=== PATIENT | male | born 1940 | race Caucasian/White ===

== ENCOUNTER 2016-10-08 06:21 | Day surgery (SDC) | payer MEDICARE, OTHER ==
[~2016-10-08] VITALS: Ht 188 cm; Wt 107.0 kg
[~2016-10-08 06:21] MED LIST: ASPIRIN325 MG PO; BAYER CHEWABLE81 MG PO; COUMADIN5 MG PO; COUMADIN7.5 MG PO; DILAUDID2 MG PO; DURAGESIC1 PATCH .7 TRANSDERM; HYZAAR 50-12.51 TAB PO; LOVENOX INJ100 MG/ML SQ; MIRALAX17 GM PO; NORCO 10/325 TA1 TA1 PO; NORVASC2.5 MG PO; PHENERGAN25 M1 PO; PLAVIX75 MG PO; PRAVACHOL20 MG PO; RESTORIL15 MG PO; TENORMIN50 MG PO; TRIBENZOR 40-51 EAC1 PO; UROCIT-K10 MEQ PO; ZESTRIL40 MG PO
[2016-10-08 07:24] LABS: BASOPHILS 0.1 % (0.0-2.0); EOSINOPHILS 1.2 % (0-7); HEMATOCRIT 41.9 % (42.0-54.0); IMMATURE GRANULOCYTES 0.8 % (0-5); LYMPHOCYTES 10.2 % (15-50); MCH 28.5 pg (26.0-34.0); MCHC 33.4 g/dL (31.0-37.0); MCV 85.2 fL (80.0-100.0); MEAN PLATELET VOLUME 9.6 fL (7.4-10.4); MONOCYTES 14.3 % (2-11); NEUTROPHILS 73.4 % (40-80); RBC 4.92 10x6/uL (4.20-6.10); RDW 15.9 % (11.5-14.5); WBC 8.3 10x3/uL (4.8-10.8)
[2016-10-08 07:26] LABS: PLATELET COUNT 124 10x3/uL (130-400)
[2016-10-08 07:39] LABS: ANION GAP 11.5 mmol/L (8-16); APTT 28.2 SECONDS (22.8-39.4); CALCIUM 9.3 mg/dL (8.5-10.1); CARBON DIOXIDE 29.2 mmol/L (21.0-32.0); CREATININE - SERUM 1.3 mg/dL (0.6-1.3); INR 1.08 (0.85-1.17); POTASSIUM - SERUM 3.7 mmol/L (3.5-5.1); PROTIME 13.9 SECONDS (11.6-15.0)
[2016-10-08 08:09] VITALS: BP 114/74; Ht 188 cm; Wt 107.0 kg
[2016-10-08] MEDS ORDERED: HYDROCODONE-APA1 TAB PO (09:55)
--- NOTE | 2016-10-08 11:19 | NUR ---
1110 SERVED FULL LIQUID DIET. Thong VAUGHN R.N.
--- NOTE | 2016-10-08 13:19 | NUR ---
1130 DRESSED. AWAKE & ALERT. GIVEN PACKET OF D/C INFORMATION INCLUDING: RX FOR NORCO 10/325MG, MED REC., DISCHARGE INSTRUCTIONS FOR LYMPH NODE BIOPSY, OP D/C INSTRUCTIONS, & RTC APPT. PT VOICED UNDERSTANDING. TO PRIVATE CAR PER WHEELCHAIR BY VOLUNTEER. HOME WITH , CAS COON. Thong VAUGHN R.N.
--- NOTE | 2016-10-25 13:21 | OP ---
PATIENT NAME: PATY COON MEDICAL RECORD: [id number] :40 LOCATION:D.OPS ADMISSION DATE: SURGEON: YAN MARTÍNEZ MD DATE OF OPERATION: 10/08/2016 PREOPERATIVE DIAGNOSES: 1. Right axillary lymphadenopathy. 2. History of lymphoma. 3. Hypertension. 4. Coronary artery disease. POSTOPERATIVE DIAGNOSES: 1. Right axillary lymphadenopathy. 2. History of lymphoma. 3. Hypertension. 4. Coronary artery disease. PROCEDURE: Right axillary excisional lymph node biopsy. SURGEON: Yan Martínez MD REPORT OF PROCEDURE: The patient's right axilla was prepped and draped in sterile fashion. A skin incision was made on the inferior and anterior aspect of the patient's right axilla. Electrocautery was used to dissect through the subcutaneous tissues into the axillary space. There was a very large axillary lymph node collection present. This was firm and I was able to get my finger around it. We were eventually able to eviscerate this through the wound and remove any attachments. The total size of the lymph node was approximately 5 cm. Once the lymph node was taken out, it was sent off to pathology, fresh for permanent specimen and lymphoma protocol. The wound space was then inspected and any sign of bleeding was treated with electrocautery. We then irrigated out the wound thoroughly with normal saline. The subcutaneous tissues were reapproximated with interrupted 3-0 Vicryl, then infused with 10 mL of 0.25% Marcaine with epinephrine. The skin incision was then closed with running subcutaneous 5-0 Monocryl and dressed appropriately. COMPLICATIONS: None. CONDITION: Stable. ANESTHESIA: General endotracheal and local. BLOOD LOSS: Minimal. TRANSINT:[id number] Voice Confirmation ID: [id number] DOCUMENT ID: [id number] YAN MARTÍNEZ MD at 1321 CC: LEN BYNUM MD and MURALI GAMINO MD [id number] DICTATION DATE: 10/08/16 1000 MANAGER COMMUNITY DEVELOPMENT: 10/08/16 1117 [facility] 10/08/16 [id number] [place] [address]
== END 2016-10-08 11:30 | disposition home or self-care (01) ==
LOC: D.OPS 06:21 → D.PAN 08:35 → D.OPS 10:15 → D.PAN 10:15 → D.OPS 11:30
PROVIDERS: Anesthesiology; Surgery
DX: C85.90 Non-Hodgkin lymphoma, unspecified, unspecified site (principal); I25.10 Atherosclerotic heart disease of native coronary artery without angina pectoris; Z95.0 Presence of cardiac pacemaker; Z95.1 Presence of aortocoronary bypass graft; I10 Essential (primary) hypertension; G47.30 Sleep apnea, unspecified

== ENCOUNTER → 2016-10-30 13:15 | Outpatient (CLI) | payer MEDICARE, OTHER ==
[2016-10-08 08:09] VITALS: BMI 30.3
[~2016-10-30 13:15] MED LIST changes: +HYDROCODONE-APA1 TAB PO
== END | disposition home or self-care (01) ==
LOC: D.CT 13:15
DX: C83.38 Diffuse large B-cell lymphoma, lymph nodes of multiple sites (principal)

== ENCOUNTER → 2016-10-31 14:08 | Outpatient (CLI) | payer MEDICARE, OTHER ==
[2016-10-08 08:09] VITALS: BMI 30.3
== END | disposition home or self-care (01) ==
LOC: D.CT 14:08
DX: R10.31 Right lower quadrant pain (principal)

== ENCOUNTER 2017-02-14 07:30 | Outpatient (CLI) | payer MEDICARE, OTHER ==
[~2017-02-14] VITALS: Ht 188 cm; Wt 102.3 kg
--- NOTE | ~2017-02-14 | HEMODYNAMI ---
PATIENT:PATY COON MEDICAL RECORD: [id number] : 40 LOCATION:DRITU ADMISSION DATE: 02/14/17 Generatedon:02/14/20179:46 Patient name: PATY COON Patient #: [id number] SSN: : 1940 Date of study: 02/14/2017 Page: Of Hemodynamic Procedure Report Patient Data Patient Demographics Procedure consent was obtained First Name: PATY Gender: Male Last Name: SHAGGY : 1940 Middle Initial: R Age: 77 year(s) Patient #: [id number] Race: Additional ID: [id number] Contact details Address: [address] [place] [address] State: [place] City: [place] Zip code: [address] Past Medical History Allergies Allergen Reaction Date Comments Reported Other allergy 02/14/2017 [facility] Admission Admission Data Admission Date: 02/14/2017 Admission Time: 7:30 Lab Results Lab Result Date: 02/14/2017 Lab Result Time: 0:00 Biochemistry Name Units Result Min Max Creatinine mg/dl 1.2 --(---*)-- 0.6 1.3 CBC Name Units Result Min Max Hemoglobin g/dl 10.3 *-(----)-- 13.5 17.5 Procedure Procedure Types Cath Procedure Diagnostic Procedure LHC LHC w/Coronaries w/Grafts Miscellaneous Procedures Moderate Sedation up to 15 minutes Procedure Description Procedure Date Procedure Date: 02/14/2017 Procedure Start Time: 9:36 Procedure End Time: 9:45 Procedure Staff Name Function Kendrick Singer MD Performing Physician Rajan Kowalski RT Scrub Jose Henao RN Nurse Clover Oconnell RT Monitor Procedure Data Cath Procedure Fluoroscopy Diagnostic fluoroscopy Total fluoroscopy Time: 1.8 time: 1.8 min min Diagnostic fluoroscopy Total fluoroscopy dose: 323 dose: 323 mGy mGy Contrast Material Contrast Material Type Amount (ml) Isovue 300 55 Entry Location Entry Primary Successful Side Size Upsize Upsize Entry Closure Succes sful Closure Location (Fr) 1 (Fr) 2 (Fr) Remarks Device Remarks Femoral Right 5 Fr Exoseal artery Estimated blood loss: 5 ml Diagnostic catheters Device Type Used For End Catheter Placement Cordis 5Fr Pigtail LV Angiography Catheter (MP) Cordis 5Fr JL 4.0 Left Coronary Catheter (MP) Angiography Cordis 5Fr 3DRC Catheter Internal mammary (MP) arteriography Cordis 5Fr 3DRC Catheter Right Coronary (MP) Angiography Procedure Complications No complications Procedure Medications Medication Administration Route Dosage Oxygen NC 2 l/min Heparin Flush Bag added to field 2 bags (1000units/500ml NS) 0.9% NaCl I.V. 100 ml/hr Fentanyl I.V. 50 mcg Versed I.V. 1 mg Fentanyl I.V. 50 mcg Versed I.V. 1 mg Hemodynamics Rest Heart Rate: 82 (bpm) Pressure Samples Time Site Value (mmHg) Purpose Heart Use Rate(bpm) 9:38 LV 120/19,37 Snapshot 76 Snapshots Pre Cath Intra NCS Post Cath Vital Signs Time Heart Resp SPO2 NIBP (mmHg) Rhythm Pain Sedation Rate (ipm) (%) Status Level (bpm) 9:10:42 77 16 98 125/80(104) NSR 0 (11) 10(A) , No pain 9:14:54 82 17 98 123/85(108) NSR 0 (11) 10(A) , No pain 9:19:06 83 16 98 125/81(101) NSR 0 (11) 10(A) , No pain 9:23:20 83 18 99 125/82(102) NSR 0 (11) 10(A) , No pain 9:27:29 78 17 100 121/91(111) NSR 0 (11) 10(A) , No pain 9:31:39 97 16 100 131/85(109) NSR 0 (11) 10(A) , No pain 9:35:53 82 16 100 133/85(110) NSR 0 (11) 9(A) , No pain 9:40:05 97 18 96 129/96(109) NSR 0 (11) 9(A) , No pain 9:44:13 98 17 98 134/93(113) NSR 0 (11) 9(A) , No pain Medications Time Medication Route Dose Verified Delivered Reason Notes Effect iveness by by 9:17:15 Oxygen NC 2 Jose Jose Per l/min Juliano Henao RN physician RN 9:20:18 Heparin Flush added 2 Jose Jose used for Bag to bags Juliano Henao RN procedure (1000units/500ml field RN NS) 9:20:27 0.9% NaCl I.V. 100 Jose Jose Per ml/hr Juliano Henao RN physician RN 9:34:45 Fentanyl I.V. 50 Jose Jose for [facility] [place], [place] Juliano Henao RN sedation RN 9:34:52 Versed I.V. 1 mg Jose Jose for Juliano Henao RN sedation RN 9:37:23 Fentanyl I.V. 50 Jose Jose for [facility] [place] [place] Juliano Henao RN sedation RN 9:37:28 Versed I.V. 1 mg Jose Jose for Juliano Henao RN sedation mechanical design drafter Log Time Note 8:45:24 Jose Henao RN sent for patient. Start room use. 8:52:25 Time tracking: Regular hours 8:52:29 Plan of Care:Hemodynamics will remain stable., Cardiac rhythm will remain stable., Comfort level will be maintained., Respiratory function will remain adequate., Patient/ family verbilizes understanding of procedure., Procedure tolerated without complication., Recovers from procedure without complications.. 8:59:55 Patient received from Pre/Post Procedure Room to [facility] 2 Alert and oriented. Tansferred to table in Supine position. 8:59:56 Warm blankets applied, and milly hugger turned on for patient comfort. 8:59:56 Correct patient and procedure confirmed by team. 8:59:58 Signed procedure consent form obtained from patient. 8:59:58 ECG and BP/O2 sat monitors applied to patient. 9:09:38 Vital chart was started 9:09:48 Rhythm: paced 9:09:50 Full Disclosure recording started 9:10:02 H&P Date Dictated: 02/10/2017 Within 30 days and on chart., H&P Addendum completed by physician on day of procedure. (MUST COMPLETE FOR ALL OUTPATIENTS). 9:10:03 Pre-procedure instructions explained to patient. 9:10:03 Pre-op teaching completed and patient verbalized understanding. 9:10:04 Family in waiting room. 9:10:05 Patient NPO since Midnight. 9:10:28 Patient allergic to Other allergylevaquin 9:10:31 Is the patient allergic to Iodine/contrast media? No. 9:10:33 Is patient on blood thinner?Yes 9:10:35 ACC The patient was administered the following blood thiners within the last 24 hours: ACCPlavix 9:10:37 Patient diabetic? No. 9:10:41 Previous problem with sedation/anesthesia? No ? 9:10:41 Snore? Yes 9:10:44 Sleep apnea? Yes 9:10:45 Deviated septum? No 9:10:47 Opens mouth fully? Yes 9:10:48 Sticks out tongue? Yes 9:10:50 Airway obstruction? No ? 9:10:52 Dentures? No ? 9:10:55 Pre procedure: right dorsailis pedis pulse 2+ Normal; easily identifiable; not easily obliterated 9:10:57 Patient pain scale 0/10 ?. 9:11:01 IV patent on arrival in left hand with 0.9% NaCl at [facility]. 9:11:17 Lab results completed and on chart. 9:11:20 Right groin area was prepped with chlora-prep and draped in sterile fashion 9:11:20 Alarms reviewed by R. N. 9:11:21 Sharps counted by scrub and verified by R.N. 9:15:36 Lab Result : Creatinine 1.2 mg/dl 9:15:36 Lab Result : Hemoglobin 10.3 g/dl 9:15:42 Use device set Femoral Dx 9:15:43 Acist Syringe opened to sterile field. 9:15:43 Bag Decanter opened to sterile field. 9:15:43 Medline Cath Pack opened to sterile field. 9:15:44 Terumo 5Fr [place] Sheath opened to sterile field. 9:15:44 St Narciso 260cm J .035 wire opened to sterile field. 9:15:45 Acist Hand Control opened to sterile field. 9:15:46 Acist Manifold opened to sterile field. 9:15:46 Diagnostic Infinity 5Fr Multipack catheter opened to sterile field. 9:15:47 Tegaderm 4 x 4 opened to sterile field. 9:17:15 Oxygen 2 l/min NC was administered by Jose Henao RN; Per physician; 9:20:18 Heparin Flush Bag (1000units/500ml NS) 2 bags added to field was administered by Jose Henao RN; used for procedure; 9:20:27 0.9% NaCl 100 ml/hr I.V. was administered by Jose Henao RN; Per physician; ::57 Baseline sample Acquired. 9:22:07 Zero performed for pressure channel P1 9:31:57 Final Timeout: patient, procedure, and site verified with staff and physician. All members of the team are in agreement. 9:32:00 Right groin site verified by team. 9:32:03 Physical assessment completed. ASA score P 2 - A patient with mild systemic disease as per Kendrick Singer MD. 9:32:40 Sedation plan: IV Moderate Sedation Versed, Fentanyl 9:34:45 Fentanyl 50 mcg I.V. was administered by Jose Henao RN; for sedation; 9:34:52 Versed 1 mg I.V. was administered by Jose Henao RN; for sedation; 9:36:43 Procedure started. 9:36:45 Local anesthetic to right femoral artery with Lidocaine 2% by Kendrick Singer MD.INITIAL ACCESS ONLY 9:37:03 A 5 Fr sheath was inserted into the Right Femoral artery 9:37:16 A Cordis 5Fr Pigtail Catheter (MP) was advanced over the wire and used for LV Angiography. 9:37:23 Fentanyl 50 mcg I.V. was administered by Jose Henao RN; for sedation; 9:37:28 Versed 1 mg I.V. was administered by oJse Henao RN; for sedation; 9:38:14 LV gram done using BORREGO 9:38:19 Injector settings: Ml/sec: 10, Volume: 20, 9:38:20 LV hemodynamics recorded. 9:38:25 EF : 30 % 9:38:26 Catheter removed. 9:38:30 A Cordis 5Fr JL 4.0 Catheter (MP) was advanced over the wire and used for Left Coronary Angiography. 9:39:38 Catheter removed. 9:40:50 A Cordis 5Fr 3DRC Catheter (MP) was advanced over the wire and used for Internal mammary arteriography. to LAD 9:41:09 A Cordis 5Fr 3DRC Catheter (MP) was advanced over the wire and used for Right Coronary Angiography. 9:41:21 Catheter removed. 9:41:36 Sheath removed intact; hemostasis achieved with Exoseal to the Right Femoral artery. 9:41:38 Procedure ended.(Physican Out) 9:42:06 Vascade 5Fr Closure Device opened to sterile field. 9:42:12 Fluoroscopy time 01.80 minutes. 9:42:15 Flurop Dose total: 323 9:42:15 Fluoroscopy dose: 323 mGy 9:42:19 Contrast amount:Isovue 300 55ml. 9:42:20 Sharps counted by scrub and verified by R.N. 9:42:21 Insertion/operative site no bleeding no hematoma. 9:42:24 Post-op/insertion site Right Femoral artery dressed using a 4 x 4 and Tegaderm. 9:42:28 Post right femoral artery:stable, clean and dry 9:42:29 Post Procedure Pulses reassessed and unchanged 9:42:32 Post-procedure physical assessment completed. ASA score P 2 - A patient with mild systemic disease as per Kendrick Singer MD. 9:42:34 Post procedure rhythm: unchanged. 9:42:36 Estimated blood loss: 5 ml 9:42:37 Post procedure instruction explained to patient.Patient verbalizes understanding. 9:42:37 Patient needs reinforcement of post procedure teaching. 9:42:46 Procedure type changed to Cath procedure, Diagnostic procedure, LHC, LHC w/Coronaries w/Grafts, Miscellaneous Procedures, Moderate Sedation up to 15 minutes 9:42:50 Procedure Complication : No complications 9:44:19 Procedure and supply charges have been captured, reviewed, submitted and are correct. 9:44:20 See physician's report for complete and final results. 9:45:23 Vital chart was stopped 9:45:25 Report given to Pre/Post Procedure Room. 9:45:28 Patient transfered to Pre/Post Procedure Room with Stretcher. 9:45:36 Procedure ended. 9:45:36 Full Disclosure recording stopped 9:45:39 End room use (Document Last) Device Usage Item Name Manufacture Quantity Catalog Number Hospital Part Current Minima l Lot# / Charge Number Stock Stock Serial# Code Acist Acist 1 53050 [id number] 258683 187128 20 Syringe Medical Spl[employer] Bag Microtek 1 2002S 039379 31664 223342 5 [employer]. Medline Cardinal 1 [id number] [id number] 71385 124025 5 Cath Pack Health Terumo 5Fr Terumo 1 [id number] 882018 551893 272457 [address] Narciso 1 [id number] 325090 012551 960618 30 260cm J .035 wire Acist Hand Acist 1 97763 046314 297144 665757 5 Control Medical Systems Inc Acist Acist 1 40819 606209 288285 462211 5 Manifold Medical Systems Inc Diagnostic Cardinal 1 [id number] 095642 13470 068236 30 Infinity Health 5Fr Multipack catheter Tegaderm 4 3M 1 1626W 351014 074699 082538 5 x 4 Cordis 5Fr Cardinal 1 955012 5 Pigtail Health Catheter (MP) Cordis 5Fr Cardinal 1 637148 5 JL 4.0 Health Catheter (MP) Cordis 5Fr Cardinal 1 379423 5 3DRC Health Catheter (MP) Vascade Cardiva 1 [id number] 038886 98850 319792 10 5Fr Medical, Closure Inc. Device Signature Audit [place] Stage Time Signature Unsigned Intra-Procedure 02/14/2017 Clover 9:45:54 AM Counts RT(R) Signatures Monitor : Clover Signature : Counts RT Date : Time : [id number] [place] [address]
[2017-02-14] MEDS ORDERED: FUROSEMIDE20 MG PO (07:59)
[2017-02-14] MEDS ORDERED: K-DUR20 MEQ PO (08:00)
[2017-02-14 08:08] VITALS: BP 138/88; Ht 188 cm; Wt 102.3 kg
[2017-02-14 08:33] LABS: BASOPHILS 0.6 % (0-2); EOSINOPHILS 1.7 % (0-7); HEMOGLOBIN 10.3 g/dL (13.5-17.5); IMMATURE GRANULOCYTES 1.1 % (0-5); LYMPHOCYTES 21.1 % (15-50); MCHC 31.2 g/dL (31.0-37.0); MCV 80.1 fL (80.0-100.0); MEAN PLATELET VOLUME 9.3 fL (7.4-10.4); MONOCYTES 18.3 % (2-11); NEUTROPHILS 57.2 % (40-80); PLATELET COUNT 148 10x3/uL (130-400); RBC 4.12 10x6/uL (4.20-6.10); RDW 17.7 % (11.5-14.5); WBC 3.6 10x3/uL (4.8-10.8)
[2017-02-14 08:36] LABS: ANION GAP 10.1 mmol/L (8-16); CALCIUM 9.4 mg/dL (8.5-10.1); CARBON DIOXIDE 29.9 mmol/L (21.0-32.0); CREATININE - SERUM 1.2 mg/dL (0.6-1.3)
--- NOTE | 2017-02-14 10:00 | NUR ---
100 RECIEVED TO ROOM VIA STRETCHER FROM BLENDER WITH 5 FR EXOSEAL R/GROIN CDI NO BLEEDING NO HEMATOMA NOTED. INSTRUCTED PATIENT TO KEEP HEAD FLAT ON PILLOW WITH RLE STRAIGHT. FAMILY AT SIDE VSS WITH CHEST PAIN DENIED.
--- NOTE | 2017-02-14 10:15 | NUR ---
1015 VSS WITH CHEST PAIN DENIED 5 FR EXOSEAL R/GROIN CDI NO BLEEDING NO HEMATOMA NOTED.
--- NOTE | 2017-02-14 10:46 | NUR ---
VSS WITH CHEST PAIN DENIED R/GROIN CDI NO CHANGE IN ASSESSMENT
--- NOTE | 2017-02-14 11:19 | NUR ---
RESTING QUIETLY WITH VSS. R/GROIN CDI NO HEMATOMA NO BLEEDING NOTED
--- NOTE | 2017-02-14 11:45 | NUR ---
PIV REMOVED WITH DRESSING APPLIED. R/GROIN REMAINS CDI NO BLEEDING NO HEMATOMA NOTED. PATIENT DENIED CHEST PAIN UP TO GET DRESSED FOR DISCHARGE HOME FAMILY AT SIDE
--- NOTE | 2017-02-14 12:05 | NUR ---
VERBAL AND WRITTEN DISCHARGE GONE OVER WITH PATIENT AND FAMILY. R/GROIN REMAINS CDI NO BLEEDING NO HEMATOMA NOTED. CHEST PAIN IS DENIED LEFT VIA WC TO PARKING FOR TRANSPORT HOME
--- NOTE | 2017-02-19 13:54 | OP ---
PATIENT NAME: PATY COON MEDICAL RECORD: [id number] :40 LOCATION:D.CAT ADMISSION DATE: SURGEON: JORDY FREY MD OPERATION DATE: 02/14/17 DATE OF OPERATION: 02/14/2017 PROCEDURES: 1. Left heart catheterization. 2. Selective coronary angiography. 3. Left ventriculogram. 4. GILMAN angiography. INDICATION: Angina, coronary artery disease, and cardiomyopathy. PROCEDURE IN DETAIL: After informed consent was obtained and after a detailed explanation of risks, benefits as well as alternative therapies, the patient elected to proceed with angiogram and heart catheterization. The right femoral area was prepped and draped in normal sterile fashion. The right femoral artery was cannulated via modified Seldinger technique with placement of 5-Slov[place] sheath. All catheters exchanged through this sheath. FINDINGS: Left ventriculogram was performed in standard 30-degree BORREGO view, reveals global hypokinesis, ejection fraction 30%, but this is really no change from previous evaluations of the ejection fraction. SELECTIVE CORONARY ANGIOGRAPHY: 1. Left main showed no significant angiographic disease. 2. Left circumflex is widely patent. 3. The left anterior descending has 99% stenosis at the ostium. 4. GILMAN to the LAD is widely patent. Distal LAD is diffusely diseased, but widely patent. 5. The right coronary has previously placed stent. This is widely patent with no significant restenosis. No disease elsewise throughout the RCA or its branches. OVERALL IMPRESSION: Wide patency of previously placed stents and left internal mammary artery graft; cardiomyopathy, unchanged. Continue medical management of the coronary artery disease and cardiac risk factors. TRANSINT:[id number] Voice Confirmation ID: [id number] DOCUMENT ID: [id number] JORDY FREY MD at 1354 CC: [id number] DICTATION DATE: 02/14/17 0946 PLANT PATHOLOGIST: 02/14/17 1055 DEP CLI 02/14/17 [address] [place] [address]
== END 2017-02-14 12:07 | disposition home or self-care (01) ==
LOC: D.CATH 07:30
PROVIDERS: Internal Medicine Interventional Cardiology
DX: I25.10 Atherosclerotic heart disease of native coronary artery without angina pectoris (principal); R06.02 Shortness of breath; I42.9 Cardiomyopathy, unspecified; Z95.0 Presence of cardiac pacemaker; I10 Essential (primary) hypertension; Z01.812 Encounter for preprocedural laboratory examination

== ENCOUNTER 2017-03-02 04:10 | Emergency (ER) | payer MEDICARE, OTHER ==
[2017-02-14 08:08] VITALS: BMI 28.9
[~2017-03-02 04:10] MED LIST changes: +FUROSEMIDE20 MG PO; +K-DUR20 MEQ PO
[2017-03-02 05:02] LABS: BASOPHILS 0.3 % (0-2); EOSINOPHILS 1.2 % (0-7); HEMATOCRIT 33.2 % (42.0-54.0); HEMOGLOBIN 10.5 g/dL (13.5-17.5); IMMATURE GRANULOCYTES 0.3 % (0-5); LYMPHOCYTES 30.7 % (15-50); MCHC 31.6 g/dL (31.0-37.0); MEAN PLATELET VOLUME 9.4 fL (7.4-10.4); MONOCYTES 28.9 % (2-11); NEUTROPHILS 38.6 % (40-80); PLATELET COUNT 127 10x3/uL (130-400); RDW 17.9 % (11.5-14.5); WBC 3.4 10x3/uL (4.8-10.8)
[2017-03-02 05:15] LABS: ALBUMIN 3.2 g/dL (3.4-5.0); ANION GAP 12.8 mmol/L (8-16); BILIRUBIN - TOTAL 0.57 mg/dL (0.2-1.3); CALCIUM 9.5 mg/dL (8.5-10.1); CARBON DIOXIDE 27.9 mmol/L (21.0-32.0); CREATININE - SERUM 1.2 mg/dL (0.6-1.3); POTASSIUM - SERUM 3.7 mmol/L (3.5-5.1); PROTEIN - SERUM 6.6 g/dL (6.4-8.2)
[2017-03-02 05:23] LABS: APPEARANCE CLEAR (CLEAR); BILIRUBIN NEGATIVE (NEGATIVE); COLOR YELLOW (YELLOW); GLUCOSE NEGATIVE (NEGATIVE); KETONE NEGATIVE (NEGATIVE); LEUKOCYTE ESTERASE NEGATIVE (NEGATIVE); NITRITE NEGATIVE (NEGATIVE); PROTEIN NEGATIVE (NEGATIVE); SPECIFIC GRAVITY 1.025 (1.005-1.020); UROBILINOGEN NORMAL (NORMAL)
== END 2017-03-02 07:24 | disposition home or self-care (01) ==
LOC: D.ER 04:10
PROVIDERS: Emergency Medicine
DX: K21.9 Gastro-esophageal reflux disease without esophagitis (principal); R10.9 Unspecified abdominal pain; C83.30 Diffuse large B-cell lymphoma, unspecified site; I10 Essential (primary) hypertension; R50.9 Fever, unspecified; R53.81 Other malaise; R53.1 Weakness

== ENCOUNTER 2017-03-05 23:12 | Inpatient (IN) | payer MEDICARE, OTHER ==
[~2017-03-05] VITALS: Ht 188 cm; Wt 101.6 kg
[2017-03-06 00:14] LABS: HEMATOCRIT 31.1 % (42.0-54.0); LYMPHOCYTES 14.2 % (15-50); MCH 24.9 pg (26.0-34.0); MCHC 32.2 g/dL (31.0-37.0); MCV 77.4 fL (80.0-100.0); MEAN PLATELET VOLUME 9.3 fL (7.4-10.4); NEUTROPHILS 73.6 % (40-80); RBC 4.02 10x6/uL (4.20-6.10); RDW 17.5 % (11.5-14.5); WBC 7.8 10x3/uL (4.8-10.8)
[2017-03-06 00:15] LABS: PLATELET COUNT 153 10x3/uL (130-400)
[2017-03-06 00:31] LABS: ALBUMIN 2.9 g/dL (3.4-5.0); ANION GAP 13.5 mmol/L (8-16); BILIRUBIN - TOTAL 0.52 mg/dL (0.2-1.3); CALCIUM 8.8 mg/dL (8.5-10.1); CARBON DIOXIDE 25.1 mmol/L (21.0-32.0); CREATININE - SERUM 1.2 mg/dL (0.6-1.3); POTASSIUM - SERUM 3.6 mmol/L (3.5-5.1); PROTEIN - SERUM 6.3 g/dL (6.4-8.2)
[2017-03-06 03:00] LABS: APPEARANCE HAZY (CLEAR); BILIRUBIN NEGATIVE (NEGATIVE); COLOR DK YELLOW (YELLOW); GLUCOSE NEGATIVE (NEGATIVE); KETONE NEGATIVE (NEGATIVE); LEUKOCYTE ESTERASE TRACE (NEGATIVE); NITRITE NEGATIVE (NEGATIVE); PROTEIN 2+ mg/dL (NEGATIVE); SPECIFIC GRAVITY 1.025 (1.005-1.020); UROBILINOGEN NORMAL (NORMAL)
[2017-03-06 03:03] LABS: BACTERIA MODERATE /hpf (NONE SEEN); EPITHELIAL CELLS 0-5 /hpf (0-5); MUCUS >1+ /lpf (NONE SEEN); WHITE CELLS - URINE 0-5 /hpf (0-5)
[2017-03-06 03:05] LABS: AMORPHOUS SEDIMENT <1+ /lpf (NONE SEEN); URIC ACID CRYSTALS 0-5 /hpf (NONE SEEN)
[2017-03-06 04:00] VITALS: BP 129/77
[2017-03-06 04:06] VITALS: BP 129/77; BMI 28.8
[2017-03-06 04:24] LABS: BASOPHILS 0.1 % (0-2); EOSINOPHILS 0.1 % (0-7); HEMATOCRIT 30.5 % (42.0-54.0); HEMOGLOBIN 9.6 g/dL (13.5-17.5); IMMATURE GRANULOCYTES 0.4 % (0-5); LYMPHOCYTES 12.5 % (15-50); MCH 25.1 pg (26.0-34.0); MCHC 31.5 g/dL (31.0-37.0); MEAN PLATELET VOLUME 8.7 fL (7.4-10.4); MONOCYTES 14.3 % (2-11); NEUTROPHILS 72.6 % (40-80); PLATELET COUNT 124 10x3/uL (130-400); RBC 3.83 10x6/uL (4.20-6.10); RDW 17.5 % (11.5-14.5); WBC 7.9 10x3/uL (4.8-10.8)
[2017-03-06 04:31] LABS: ANION GAP 11.6 mmol/L (8-16); CALCIUM 8.8 mg/dL (8.5-10.1); CARBON DIOXIDE 28.3 mmol/L (21.0-32.0); CREATININE - SERUM 1.3 mg/dL (0.6-1.3); MCV 79.6 fL (80.0-100.0); POTASSIUM - SERUM 3.9 mmol/L (3.5-5.1)
--- NOTE | 2017-03-06 04:43 | NUR ---
AQSSESSMENT PER ADMIT PACKET ALERT ORIENTED X4 ANTIBIOTIC INFUSING TO RT INFUSAPORT. RT ABDOMEN HAS A STIMULATOR DEVICE IN PLACE. HX OF PACEMAKER.
--- NOTE | 2017-03-06 08:25 | NUR ---
ASSESSMENT PER FLOW SHEET.PT WITHOUT DISTRESS.DENIES NEEDS.CALL LIGHT IN REACH.
[2017-03-06 08:26] VITALS: BP 141/70
[2017-03-06 12:57] VITALS: BP 92/53
--- NOTE | 2017-03-06 14:31 | NUR ---
Patient Name: PATY COON Admission Status: ER Accout number: [id number] Admission Date: 03-06-2017 : 1940 Admission Diagnosis:FEVER, UNSPECIFIED Attending: CANDICE Current LOS: 1 Anticipated DC Date: Planned Disposition: Home Primary Insurance: MEDICARE A & B Discharge Planning Comments: CM met with patient and (belem) to assess discharge planning needs. Patient lives at home with his where he is independent. He plans to return there and his to drive him home. Patient has a CPAP machine. Denies any other DME or HH services. CM will continue to follow and assist as needed. PCP: [facility] [place] () Electric Needle Specialist: Kalani Ruiz * Is the patient Alert and Oriented? Yes 0 * How many steps to enter\exit or inside your home? 0 0 * PCP 0 * [facility] 0 * Preadmission Environment Home with Family 0 * ADLs Independent 0 * Equipment CPAP 0 * List name and contact numbers for known caregivers / representatives who currently or will assist patient after discharge: BELEM COON () [phone] 0 * Community resources currently utilized None 0 * Additional services required to return to the preadmission environment? No 0 * Can the patient safely return to the preadmission environment? Yes 0 * Has this patient been hospitalized within the prior 30 days at any hospital? No 0 Grand Total: 0
[2017-03-06 14:57] VITALS: Ht 188 cm; Wt 101.6 kg
[2017-03-06 16:11] VITALS: BP 108/64
--- NOTE | 2017-03-06 18:49 | NUR ---
REMAINS WITHOUT CHANGE FROM INITIAL ASSESSMENT.CONT PLAN OF CARE
--- NOTE | 2017-03-06 19:58 | NUR ---
SITTING UP IN THE CHAIR. AWAKE, ALERT AND ORIENTED. PATIENT DENIES NEEDS. BROUGHT PATIENT'S A CUP OF ICE WATER.
[2017-03-06 20:00] VITALS: BP 125/63
[2017-03-07] VITALS: BP 106/62
[2017-03-07 04:00] VITALS: BP 129/51
[2017-03-07 06:42] LABS: BASOPHILS 0 % (0-2); EOSINOPHILS 0 % (0-7); HEMATOCRIT 27.7 % (42.0-54.0); HEMOGLOBIN 8.9 g/dL (13.5-17.5); IMMATURE GRANULOCYTES 0.7 % (0-5); LYMPHOCYTES 4.4 % (15-50); MCH 25.2 pg (26.0-34.0); MCHC 32.1 g/dL (31.0-37.0); MCV 78.5 fL (80.0-100.0); MEAN PLATELET VOLUME 9.3 fL (7.4-10.4); MONOCYTES 6.1 % (2-11); NEUTROPHILS 88.8 % (40-80); PLATELET COUNT 129 10x3/uL (130-400); RBC 3.53 10x6/uL (4.20-6.10); RDW 18.1 % (11.5-14.5)
[2017-03-07 06:54] LABS: WBC 11.3 10x3/uL (4.8-10.8)
[2017-03-07 06:58] LABS: ANION GAP 13.1 mmol/L (8-16); CALCIUM 8.9 mg/dL (8.5-10.1); CARBON DIOXIDE 24.4 mmol/L (21.0-32.0); POTASSIUM - SERUM 3.5 mmol/L (3.5-5.1)
[2017-03-07 07:03] LABS: CREATININE - SERUM 1.9 mg/dL (0.6-1.3)
--- NOTE | 2017-03-07 07:50 | NUR ---
ASSESSMENT PER FLOW SHEET.PT WITHOUT DISTRESS.SOME SHORTNESS OF BREATH ON EXERT.DENIES PAIN.CALL LIGHT IN REACH
[2017-03-07 07:53] VITALS: BP 128/71
[2017-03-07 12:16] VITALS: BP 126/59
--- NOTE | 2017-03-07 13:04 | NUR ---
LYING IN BED,REMAINS WITHOUT CHANGE.CALL LIGHT IN REACH
[2017-03-07 15:53] VITALS: BP 133/73
--- NOTE | 2017-03-07 19:00 | NUR ---
BEDSIDE REPORT RECEIVED AND CARE OF PT ASSUMED. PT SITTING UP IN CHAIR VISITING WITH SPOUSE. RIGHT PORT ACCESSED WITH D5 1/2 NS INFUSING AT 50 ML / HR. O2 IN USE AT 2L. WILL MONITOR CLOSLEY FOR NEEDS.
[2017-03-07 20:00] VITALS: BP 113/64
--- NOTE | 2017-03-07 20:30 | NUR ---
HS MEDICATIONS GIVEN. WILL CONTINUE TO MONITOR FOR NEEDS.
--- NOTE | 2017-03-07 22:49 | NUR ---
PT C/O SEVERE HEARTBURN. CALLED DR GAMINO FOR MEDICATION. RECEIVED ORDER FOR MAALOX 30 ML PO Q6HR PRN.
[2017-03-08] VITALS (7 sets, daily range): BP systolic 104–145; BP diastolic 57–86
[2017-03-08 05:28] LABS: BASOPHILS 0.1 % (0-2); EOSINOPHILS 0 % (0-7); HEMOGLOBIN 8.3 g/dL (13.5-17.5); IMMATURE GRANULOCYTES 8.1 % (0-5); LYMPHOCYTES 2.7 % (15-50); MCH 24.8 pg (26.0-34.0); MCHC 31.9 g/dL (31.0-37.0); MCV 77.6 fL (80.0-100.0); MEAN PLATELET VOLUME 9.7 fL (7.4-10.4); MONOCYTES 2.2 % (2-11); NEUTROPHILS 86.9 % (40-80); PLATELET COUNT 124 10x3/uL (130-400); RBC 3.35 10x6/uL (4.20-6.10); RDW 18.2 % (11.5-14.5)
[2017-03-08 05:49] LABS: ANION GAP 14.9 mmol/L (8-16); CALCIUM 9.5 mg/dL (8.5-10.1); CARBON DIOXIDE 24.6 mmol/L (21.0-32.0); CREATININE - SERUM 2.2 mg/dL (0.6-1.3); POTASSIUM - SERUM 3.5 mmol/L (3.5-5.1)
--- NOTE | 2017-03-08 07:10 | NUR ---
REPORT RECEIVED FROM NAUMKEAG OPERATOR NURSE. CALL LIGHT IN REACH.
--- NOTE | 2017-03-08 08:01 | HP ---
PATIENT: PATY COON MEDICAL RECORD: [id number] ACCOUNT: [id number] LOCATION:D.[facility] : 40 ADMISSION DATE: 03/06/17 HISTORY AND PHYSICAL EXAMINATION REASON FOR ADMISSION: Rigors and fever. HISTORY OF PRESENT ILLNESS: The patient is a 77-year-old male with B-cell lymphoma with recent PET scan showing advanced disease. For this reason, he underwent new chemo regimen yesterday and received chemotherapy in Dr. Nunez's office. He stated he did not feel well afterwards, developed rigors and fever at home and slight cough. He came to the Emergency Room for this reason. Chest x-ray showed evidence of left lower lobe infiltrate according to the ER physician. For that reason, he was admitted and placed on broad-spectrum IV antibiotics. He denies nausea or vomiting. PAST MEDICAL HISTORY: B-cell lymphoma, which has failed his initial chemo regimen; CAD, post-multiple cardiac stents and known LAD distal 99% ostial lesion medically treated per Dr. Singer in last cath in January of this year, essential hypertension, nephrolithiasis with right renal pelvis stones currently, history of transient AFib/flutter, dyslipidemia, adult sleep apnea, sick sinus syndrome with pacemaker, history of right occipital CVA, left vertebral artery thrombosis in 2013, diverticulosis, TCC of the bladder post-BCG therapy in 1985, history of uncontrolled essential hypertension. PAST SURGICAL HISTORY: Axillary node biopsy previously for lymphoma; cataract surgery o.u.; two-vessel CABG in 2009; pacemaker placement; PTCA, multiple. FAMILY HISTORY: Father from complications of cerebellar ataxia, and brother and sister both had this diagnosis. Mother at 90 with complications of CAD. ALLERGIES: None known. SOCIAL HISTORY: He is , retired, remote smoker, does not drink alcohol. CURRENT MEDICATIONS: Chemotherapy per Dr. Nunez, I am not sure of that regimen currently. Pravastatin 20 mg p.o. at h.s., aspirin 81 mg p.o. daily, furosemide 20 mg p.o. q.a.m. p.r.n. swelling, potassium chloride 20 mEq p.o. daily, Urocit-K 10 mEq p.o. b.i.d., Norvasc 2.5 mg daily, losartan/HCTZ 50/12.5 one p.o. q.a.m., Restoril 15 mg at h.s. p.r.n. sleep, MiraLax 17 g p.o. daily. REVIEW OF SYSTEMS: GENERAL: Fatigue with poor appetite. Fever and chills as mentioned above. HEENT: No recent visual change, sinus congestion, or sore throat. RESPIRATORY: He has had a dry cough and mild exertional dyspnea. Denies pleuritic chest pain, hemoptysis or sputum production. CARDIAC: No exertional chest pain or claudication. He has had mild bipedal edema. GASTROINTESTINAL: Some nausea without vomiting or change in stools. GENITOURINARY: Denies nocturia or dysuria. MUSCULOSKELETAL: Has arthralgias in the lumbar spine without sciatica. INTEGUMENT: No rash or itching. PSYCHIATRIC: Admits to some depressed mood due to his recent need to restart chemotherapy. HISTORY AND PHYSICAL [id number] PATY COON NEUROLOGICAL: Remote history of stroke without deficits. Denies memory loss. PHYSICAL EXAMINATION: GENERAL: The patient is alert and oriented. VITAL SIGNS: Temperature is 100.5 orally Fahrenheit. Heart rate is 111 and regular, respirations were 20, blood pressure 107/67, sat 95% on room air. HEENT: Normocephalic. Eyes are clear. Throat unremarkable. CHEST: Distant breath sounds without wheeze or rales. He is not tachypneic. HEART: Regular rate and rhythm. ABDOMEN: Obese, soft, nontender. No masses were felt. Inguinal area shows some small inguinal nodes. GENITOURINARY: Prostate examination deferred. EXTREMITIES: A 1+ bipedal edema bilaterally. NEUROLOGIC: Oriented to person, place, and time. Cranial nerves grossly intact. Gait was not tested. LABORATORY DATA: White count 7800 with 73.6 neutrophils, 14.2 lymphocytes, platelet count 153,000. BMP normal for nonfasting blood sugar of 102, lactic acid is 2.2 initially, now 1.8. Amylase and lipase were normal. Potassium 3.6. UA showed microscopic hematuria. Chest x-ray shows left lower lobe infiltrate. ASSESSMENT: 1. Fever and chills post-chemotherapy. 2. Probable left lower lobe pneumonia. 3. Right renal pelvis calculi with microscopic hematuria. 4. B-cell lymphoma, aggressive. 5. History of coronary artery disease. 6. Hypertension. PLAN: The patient will be admitted and placed on broad-spectrum antibiotics including vancomycin and Zosyn. We will place on maintenance IV fluids. Hematology consult and pulmonary consult if indicated. TRANSINT:[id number] Voice Confirmation ID: [id number] DOCUMENT ID: [id number] MURALI GAMINO MD at 0801 CC: [id number] DICTATION DATE: 03/06/17726 AIRLINE PILOT FLIGHT INSTRUCTOR: 03/06/17 1154 ADM IN [id number] [place] [address]
--- NOTE | 2017-03-08 08:14 | NUR ---
C/O PAIN OF 7. REQUESTING IV PAIN MEDS. DILAUDID 1 MG SIVP. CALL LIGHT IN REACH.
--- NOTE | 2017-03-08 09:01 | NUR ---
ASSESSMENT COMPLETED. AM MEDS ADMINISTERED. IN ROOM. CALL LIGHT IN REACH. WILL CONTINUE WITH PLAN OF CARE.
--- NOTE | 2017-03-08 10:50 | NUR ---
SITTING UP IN BED AT THIS TIME. DENIES NEEDS. CALL LIGHT IN REACH.
--- NOTE | 2017-03-08 12:06 | NUR ---
REINA MALDONADO. IN ROOM. CALL LIGHT IN REACH.
--- NOTE | 2017-03-08 14:32 | NUR ---
NO NEEDS VOICED AT THIS TIME. AT BEDSIDE. CALL LIGHT IN REACH.
--- NOTE | 2017-03-08 16:20 | NUR ---
DNIES NEEDS AT THIS TIME. CALL LIGHT IN REACH. IN ROOM.
--- NOTE | 2017-03-08 18:19 | NUR ---
NO CHANGES IN INITIAL ASSESSMENT. SCDs TO BLE. CALL LIGHT IN REACH. IN ROOM. WILL CONTINUE WITH PLAN OF CARE.
--- NOTE | 2017-03-08 19:00 | NUR ---
BEDSIDE REPORT RECEIVED AND CARE OF PT ASSUMED. PT SITTING UP IN CHAIR VISITING WITH FAMILY MEMBER. O2 IN USE VIA NC AT 2L, AND PT RECEIVING BREATHING TX AT THIS TIME. RIGHT PORT ACCESSED WITH D5 1/2 NS INFUSING AT 50 ML / HR. WILL MONITOR CARLOS ALBERTOLEY FOR NEEDS.
--- NOTE | 2017-03-08 21:03 | NUR ---
[facility] MEDICAITONS GIVEN TO INCLUDE MORPHINE 4 MG FOR PAIN AND SO PT CAN REST. WILL MONITOR FOR EFFECTIVENESS. SIDE RAILS UP X2 FOR SAFETY.
--- NOTE | 2017-03-08 22:52 | NUR ---
DR BYNUM HERE ROUNDING ON PT.
[2017-03-09 04:02] VITALS: BP 134/80
--- NOTE | 2017-03-09 04:25 | NUR ---
JENNIFER BLOOD FROM [facility] FOR LABS. DELIVERED TO APPRENTICE PLANT ATTENDANT.
[2017-03-09 04:41] LABS: BASOPHILS 0.1 % (0-2); EOSINOPHILS 0.3 % (0-7); HEMATOCRIT 26.6 % (42.0-54.0); HEMOGLOBIN 8.6 g/dL (13.5-17.5); LYMPHOCYTES 2.4 % (15-50); MCH 25.1 pg (26.0-34.0); MCHC 32.3 g/dL (31.0-37.0); MCV 77.8 fL (80.0-100.0); MEAN PLATELET VOLUME 9.3 fL (7.4-10.4); MONOCYTES 1.6 % (2-11); NEUTROPHILS 76.6 % (40-80); PLATELET COUNT 109 10x3/uL (130-400); RBC 3.42 10x6/uL (4.20-6.10); RDW 18.1 % (11.5-14.5); WBC 11.8 10x3/uL (4.8-10.8)
[2017-03-09 05:02] LABS: ANION GAP 12.5 mmol/L (8-16); CALCIUM 9.9 mg/dL (8.5-10.1); CARBON DIOXIDE 24.3 mmol/L (21.0-32.0); CREATININE - SERUM 1.8 mg/dL (0.6-1.3); POTASSIUM - SERUM 3.8 mmol/L (3.5-5.1)
--- NOTE | 2017-03-09 07:05 | NUR ---
RECEIVED REPORT. ASSUMED CARE OF PATIENT. CALL LIGHT WITHIN REACH. ALERT/ORIENTED. CPAP PATENT. IV FLUIDS INFUSING TO RIGHT CHEST INFUSAPORT ORDERED. NO DISTRESS. DENIES NEEDS.
[2017-03-09 08:32] VITALS: BP 127/78
--- NOTE | 2017-03-09 10:00 | NUR ---
PATIENT OOB TO CHAIR. DENIES PAIN. CALL LIGHT WITHIN REACH. VISITOR AT BEDSIDE. NO DISTRESS.
[2017-03-09 11:56] VITALS: BP 122/78
--- NOTE | 2017-03-09 13:57 | NUR ---
RESTING IN BED WITH EYES CLOSED. EASILY AROUSED. FEMALE VISITOR AT BEDSIDE. DENIES NEEDS. NO DISTRESS.
--- NOTE | 2017-03-09 15:24 | NUR ---
IV TUBING CHANGED AT THIS TIME. SITTING TO CHAIR AT BEDSIDE. NO DISTRESS.
[2017-03-09 16:51] VITALS: BP 146/78
--- NOTE | 2017-03-09 18:45 | NUR ---
RESTING IN BED, DENIES ANY NEEDS. PATIENT WAS PROVIDED A URINAL BUT DIDN'T MAKE IT IN TIME TO THE RESTROOM TO USE THE URINAL. UNABLE TO PROVIDE ACCURATE I&O FOR THIS PATIENT.
[2017-03-09 19:00] VITALS: BP 108/67
--- NOTE | 2017-03-09 19:00 | NUR ---
BEDSIDE REPORT RECEIVED AND CARE OF PT ASSUMED. PT LYING IN SEMI MEJIA'S POSITION VISITING WITH SPOUSE. RIGHT IP ACCESSED WITH PRISTINE DRESSING, WITH D5 1/2 NS INFUSING AT 100 ML / HR. PT C/O SEVERAL INCIDENTS OF DIARRHEA TODAY. WILL MONITOR CLOSLEY FOR NEEDS.
--- NOTE | 2017-03-09 20:40 | NUR ---
HS MEDICAITONS GIVEN.
--- NOTE | 2017-03-09 20:50 | NUR ---
DR BYNUM HERE ROUNDING ON PT...ORDERED LOMOTIL X2 TABS PO Q6 PRN FOR DIARRHEA.
--- NOTE | 2017-03-09 21:38 | NUR ---
GAVE FIRST DOSE OF LOMOTIL. PLACED HAT AND SPECIMEN CUP IN ROOM TO COLLECT SAMPLE FOR C-DIFF TEST PER NEW ORDER.
[2017-03-10] VITALS: BP 127/67
--- NOTE | 2017-03-10 00:30 | NUR ---
COLLECTED STOOL AND DELIVERED TO LAB FOR C-DIFF TESTING.
[2017-03-10 04:00] VITALS: BP 113/76
--- NOTE | 2017-03-10 05:16 | NUR ---
RECEIVED NEGATIVE RESULTS FOR C-DIFF TEST ON STOOL.
[2017-03-10] MEDS ORDERED: FLORAJEN3 CAPS460 MG PO (07:17)
[2017-03-10] MEDS ORDERED: LOMOTIL TABLET1 TAB PO (07:17)
--- NOTE | 2017-03-10 07:30 | NUR ---
RECIEVED PT DURING WALKING ROUNDS. PT RESTING IN BED WITH NO COMPLAINTS OF PAIN OR DISCOMFORT. ASSESSMENT DONE PER FLOWSHEET. PT AWAITING DISCHARGE. WILL CONTINUE TO MONITOR
[2017-03-10 08:38] VITALS: BP 142/86
--- NOTE | 2017-03-10 09:09 | NUR ---
Patient being discharged today with to drive home. Patient denies any HH needs at this time. IMM served.
--- NOTE | 2017-03-10 09:45 | NUR ---
PT DISCHARGED VIA WHEELCHAIR TO HOME WITH A FAMILY MEMBER
--- NOTE | 2017-03-11 07:41 | DS ---
PATIENT:PATY COON :40 MEDICAL RECORD: [id number] DISCHARGE SUMMARY ADMISSION DATE: 03/06/17 DISCHARGE DATE: 03/10/17 DISCHARGE DIAGNOSES: Acute renal insufficiency, lymphoma, anemia, thrombocytopenia, dyspnea on exertion, atelectasis. CONSULTANTS: Dr. Nunez. HOSPITAL COURSE: A 77-year-old male admitted 2 days post-CHOP therapy for aggressive lymphoma. He had increasing shortness of breath and cough. In the ED, he was felt to have pneumonia and was admitted and placed on broad-spectrum antibiotics. Follow up chest x-ray did not show pneumonia and the antibiotics were discontinued as cultures were negative. His H&H was 10 and 31 on admission and 8.6 and 26 at discharge. His BUN and creatinine were 28 and 2.2, after hydration it is improved to 26 and 1.8. Outpatient pulmonary CTA was negative for PE. UA showed moderate bacteria and 5-10 red cells. The patient was gradually improved with hydration, overall he is feeling better. He considered not continuing further chemo, but has change his mind and next 2 weeks, he received his second chemo dose. He is discharged today in improved condition except for some mild diarrhea that his CDT negative. DISCHARGE DIET: Regular as tolerated. ACTIVITY: Progress as tolerated. DISCHARGE MEDICATIONS: Lomotil 1 after each loose stool, pravastatin 20 mg with evening meal, aspirin 81 mg a day, potassium citrate or Urocit-K 10 mEq 1 p.o. b.i.d., furosemide 20 mg p.o. q.a.m. p.r.n. swelling, potassium 20 mEq p.o. daily p.r.n., Lasix used, Norvasc 2.5 mg p.o. daily, Restoril 15 mg at h.s. p.r.n. sleep, MiraLax 17 grams p.o. daily p.r.n. constipation. We will hold losartan and HCTZ 50/12.5 one p.o. q.a.m. at this time. Return to clinic to see me in 1 week for blood pressure check and BMP. TRANSINT:[id number] Voice Confirmation ID: [id number] DOCUMENT ID: [id number] MURALI GAMINO MD at 0741 CC: [id number] DICTATION DATE: 03/10/17715 CASKET ASSEMBLER METAL: 03/10/17 2136 DIS IN 03/10/17 [facility] [address] [place] [address]
== END 2017-03-10 10:25 | disposition home or self-care (01) | DRG 812 ==
LOC: D.ER 23:12 → D.MS 03-06 02:07
PROVIDERS: Family Medicine; ADMIT Family Medicine
DX: D64.9 Anemia, unspecified (principal); C85.10 Unspecified B-cell lymphoma, unspecified site; N17.9 Acute kidney failure, unspecified; J98.11 Atelectasis; D69.6 Thrombocytopenia, unspecified; R50.2 Drug induced fever; T45.1X5A Adverse effect of antineoplastic and immunosuppressive drugs, initial encounter; N20.0 Calculus of kidney; I10 Essential (primary) hypertension; Z95.0 Presence of cardiac pacemaker; I12.9 Hypertensive chronic kidney disease with stage 1 through stage 4 chronic kidney disease, or unspecified chronic kidney disease; N18.9 Chronic kidney disease, unspecified; R19.7 Diarrhea, unspecified

== ENCOUNTER 2017-04-15 05:46 | Inpatient (IN) | payer MEDICARE, OTHER ==
--- NOTE | ~2017-04-15 | HEMODYNAMI ---
PATIENT:PATY COON MEDICAL RECORD: [id number] : 40 LOCATION:[facility] [id number] ADMISSION DATE: 04/15/17 Generatedon:04/23/201715:49 Patient name: PATY COON Patient #: [id number] SSN: : 1940 Date of study: 04/23/2017 Page: Of Hemodynamic Procedure Report Patient Data Patient Demographics Procedure consent was obtained First Name: PATY Gender: Male Last Name: SHAGGY : 1940 [facility] Initial: R Age: 77 year(s) Patient #: [id number] Race: Additional ID: [id number] Contact details [address]: [address] [place] [address] State: [place] City: [place] Zip code: [address] Past Medical History Allergies Allergen Reaction Date Comments Reported Other allergy 02/14/2017 [facility] Admission Admission Data Admission Date: 04/15/2017 Admission Time: 10:58 Room #: D.2236 Procedure Procedure Types Cath Procedure Peripheral Cath Diagnostic Procedure Miscellaneous Procedure Description Procedure Date Procedure Date: 04/23/2017 Procedure Start Time: 14:22 Procedure Staff Name Function Linus Finley MD Performing Physician Luisa Elliott RT Scrub Isabella Ziegler RN Nurse Thien Clark RT Monitor Procedure Data Cath Procedure Fluoroscopy Diagnostic fluoroscopy Total fluoroscopy Time: time: 16.7 min 16.7 min Diagnostic fluoroscopy Total fluoroscopy dose: 397 dose: 397 mGy mGy Contrast Material Contrast Material Type Amount (ml) Isovue 300 30 Procedure Medications Medication Administration Route Dosage Versed I.V. 1 mg Fentanyl I.V. 50 mcg Versed I.V. 1 mg Fentanyl I.V. 50 mcg Rocephin I.V. g Versed I.V. 1 mg Fentanyl I.V. 50 mcg Fentanyl I.V. 50 mcg Versed I.V. 1 mg Versed I.V. 1 mg Fentanyl I.V. 50 mcg Hemodynamics Rest Heart Rate: 75 (bpm) Snapshots Pre Cath Intra NCS Post Cath Vital Signs Time Heart Resp SPO2 NIBP (mmHg) Rhythm Pain Sedation Rate (ipm) (%) Status Level (bpm) 14:13:40 87 9 100 138/92(121) NSR 0 (11) 10(A) , No pain 14:17:52 76 11 100 134/85(114) NSR 0 (11) 10(A) , No pain 14:22:02 79 12 100 141/93(124) NSR 0 (11) 10(A) , No pain 14:26:13 90 16 100 137/92(119) NSR 0 (11) 10(A) , No pain 14:30:25 90 100 134/87(115) NSR 0 (11) 10(A) , No pain 14:34:31 89 10 100 137/90(115) NSR 0 (11) 10(A) , No pain 14:38:41 89 13 100 137/90(123) NSR 0 (11) 10(A) , No pain 14:42:51 95 15 100 142/96(118) NSR 0 (11) 10(A) , No pain 14:47:01 94 4 100 137/95(115) NSR 0 (11) 10(A) , No pain 14:51:11 94 100 137/93(116) NSR 0 (11) 10(A) , No pain 14:55:21 90 100 139/96(115) NSR 0 (11) 10(A) , No pain 14:59:28 93 1 100 137/94(115) NSR 0 (11) 10(A) , No pain 15:03:38 100 139/94(118) NSR 0 (11) 10(A) , No pain 15:07:48 87 2 100 137/93(115) NSR 0 (11) 10(A) , No pain 15:11:58 90 19 100 137/93(117) NSR 0 (11) 10(A) , No pain 15:16:04 85 15 100 130/91(112) NSR 0 (11) 10(A) , No pain 15:20:12 88 29 100 142/93(117) NSR 0 (11) 10(A) , No pain 15:24:24 92 33 100 143/96(117) NSR 0 (11) 10(A) , No pain 15:28:36 89 100 154/101(130) NSR 0 (11) 10(A) , No pain 15:30:18 88 0 100 145/99(121) NSR 0 (11) 10(A) , No pain 15:34:28 97 0 100 145/98(122) NSR 0 (11) 10(A) , No pain 15:38:40 97 21 100 146/100(127) NSR 0 (11) 10(A) , No pain 15:43:39 Measuring NSR 0 (11) 10(A) , No pain 15:44:32 Disturbed NSR 0 (11) 10(A) , No pain 15:48:03 145/87(125) NSR 0 (11) 10(A) , No pain Medications Time Medication Route Dose Verified Delivered Reason Notes Effectivenes s by by 14:23:18 Versed I.V. 1 mg Linus Ziegler RN, MD 14:23:30 Fentanyl I.V. 50 Linus Ziegler RN, MD 14:44:36 Versed I.V. 1 mg Linus Ziegler RN, MD 14:44:50 Fentanyl I.V. 50 Linus Ziegler RN, MD 14:45:04 Rocephin I.V. g Linus Ziegler RN, MD 14:59:10 Versed I.V. 1 mg Linus Ziegler RN, MD 14:59:22 Fentanyl I.V. 50 Linus Ziegler RN, MD 15:21:14 Fentanyl I.V. 50 Linus Ziegler RN, MD 15:21:24 Versed I.V. 1 mg Linus Ziegler RN, MD 15:27:06 Versed I.V. 1 mg Linus Ziegler RN, MD 15:27:17 Fentanyl I.V. 50 Linus Ziegler RN, MD Procedure Log Time Note 13:47:15 Thien Clark RT (R) (CV) sent for patient. Start room use. 13:47:27 Time tracking: Regular hours 13:47:31 Plan of Care:Hemodynamics will remain stable., Cardiac rhythm will remain stable., Comfort level will be maintained., Respiratory function will remain adequate., Patient/ family verbilizes understanding of procedure., Procedure tolerated without complication., Recovers from procedure without complications.. 13:47:38 Patient received from Med/Surg to IR Alert and oriented. Tansferred to table in Prone position. 13:47:40 Correct patient and procedure confirmed by team. 13:47:41 Signed procedure consent form obtained from patient. 13:47:43 ECG and BP/O2 sat monitors applied to patient. 13:47:44 Full Disclosure recording started 13:47:44 - 13:47:48 H&P Date Dictated: 04/23/2017 H&P Addendum completed by physician on day of procedure. (MUST COMPLETE FOR ALL OUTPATIENTS). 13:47:48 Pre-procedure instructions explained to patient. 13:47:49 Pre-op teaching completed and patient verbalized understanding. 13:47:50 Family in waiting room. 13:47:51 Patient NPO since Midnight. 13:47:54 Is the patient allergic to Iodine/contrast media? No. 13:47:56 Is patient on blood thinner?No 13:48:01 Patient diabetic? No. 13:48:02 - 13:48:02 ----Pre-sedation anethsthesia assessment.---- 13:48:14 Previous problem with sedation/anesthesia? No ? 13:48:15 Snore? Yes 13:48:17 Sleep apnea? Yes 13:48:18 Deviated septum? No 13:48:38 Opens mouth fully? Yes 13:48:39 Sticks out tongue? Yes 13:48:42 Airway obstruction? No ? 13:48:44 Dentures? No ? 13:48:45 - 13:48:52 Patient pain scale 0/10 no pain. 13:48:54 Sharps counted by scrub and verified by R.N. 13:48:55 Alarms reviewed by RCindy N. 13:49:06 IV patent on arrival in port with 0.9% NaCl at [facility]. 13:49:18 Use device set IR Diagnostic 13:49:20 Bag Decanter opened to sterile field. 14:07:51 Right abdomen area was prepped with chlora-prep and draped in sterile fashion 14:07:56 Left abdomen area was prepped with chlora-prep and draped in sterile fashion 14:12:38 Vital chart was started 14:12:40 Baseline sample Acquired. 14:12:42 Rhythm: sinus rhythm 14:18:22 --------ALL STOP TIME OUT------ 14:18:23 Final Timeout: patient, procedure, and site verified with staff and physician. All members of the team are in agreement. 14:18:32 Right abdomen site verified by team. 14:18:38 Left abdomen site verified by team. 14:19:55 Physical assessment completed. ASA score P 2 - A patient with mild systemic disease as per Linus Finley MD. 14:19:59 Sedation plan: IV Moderate Sedation Versed, Fentanyl 14:20:18 STOPCOCK 3-WAY LARGE BORE opened to sterile field. 14:22:22 Procedure started. 14:22:29 Local anesthetic to Abdominal area with Lidocaine 1% by Linus Finley MD.INITIAL ACCESS ONLY 14:22:32 STOPCOCK 3-WAY LARGE BORE opened to sterile field. 14:22:33 KIT, INTRODUCER ACCUSTICK II W/C opened to sterile field. 14:22:43 Sterile Angiographic Pack opened to sterile field. 14:23:18 Versed 1 mg I.V. was administered by Isabella Ziegler RN; ; 14:23:30 Fentanyl 50 mcg I.V. was administered by Isabella Ziegler RN; ; 14:34:40 CHIBA 20 X 15 needle opened to sterile field. 14:35:27 BAG, DRAINAGE EMPTY 600ML W/MANJULA opened to sterile field. 14:36:41 SUTURE ETHILON 2-0 BLK MONO FS opened to sterile field. 14:42:05 PEEL-A-WAY INTRODUCER 9FR. opened to sterile field. 14:44:36 Versed 1 mg I.V. was administered by Isabella Ziegler RN; ; 14:44:50 Fentanyl 50 mcg I.V. was administered by Isabella Ziegler RN; ; 14:45:04 Rocephin g I.V. was administered by Isabella Ziegler RN; ; 14:52:06 Abscession 8Fr drainage catheter opened to sterile field. 14:52:32 Hopewell Sci 8FR.X 24CM Ureteral Stent opened to sterile field. 14:59:10 Versed 1 mg I.V. was administered by Isabella Ziegler RN; ; 14:59:22 Fentanyl 50 mcg I.V. was administered by Isabella Ziegler RN; ; 15:00:50 Terumo 5FR ANGLED 65CM glide catheter opened to sterile field. 15:21:14 Fentanyl 50 mcg I.V. was administered by Isabella Ziegler RN; ; 15:21:24 Versed 1 mg I.V. was administered by Isabella Ziegler RN; ; 15:27:06 Versed 1 mg I.V. was administered by Isabella Ziegler RN; ; 15:27:17 Fentanyl 50 mcg I.V. was administered by Isabella Ziegler RN; ; 15:30:20 Procedure ended.(Physican Out) 15:30:39 Fluoroscopy time 16.70 minutes. 15:30:44 Fluoroscopy dose: 397 mGy 15:30:44 Flurop Dose total: 397 15:30:50 Contrast amount:Isovue 300 30ml. 15:30:52 Sharps counted by scrub and verified by R.N. 15:30:54 Insertion/operative site no bleeding no hematoma. 15:31:01 Post-op/insertion site Right Abdominal area dressed using a 4 x 4 and Tegaderm. 15:31:07 Post-op/insertion site Left Abdominal area dressed using a 4 x 4 and Tegaderm. 15:31:15 Post Abdominal area:stable 15:31:17 Post Procedure Pulses reassessed and unchanged 15:32:41 Post-procedure physical assessment completed. ASA score P 2 - A patient with mild systemic disease as per Linus Finley MD. 15:32:46 Post procedure rhythm: unchanged. 15:32:47 Post procedure instruction explained to patient.Patient verbalizes understanding. 15:32:48 Procedure and supply charges have been captured, reviewed, submitted an d are correct. 15:48:58 Vital chart was stopped 15:49:24 Report given to Med/Surg. 15:49:28 Patient transfered to Med/Surg with Bed. Device Usage Item Name Manufacture Quantity Catalog Hospital Part Current Minima l Lot# / Number Charge Number Stock Stock Serial# Code Bag Decanter Microtek 1 [id number] 5 SolePower. [facility] 2 [id number] 1192 [id number] 5 3-WAY LARGE BORE KIT, [employer]well 1 [id number] 559172 897032 310563 5 INTRODUCER Scientific ACCUSTICK II W/C Sterile Cardinal 1 [id number] 178427 5 Angiographic Health Pack CHIBA 20 X [employer] [facility] [facility] 1 [id number] 498667 5 [id number] 15 needle BAG, [facility] 1 [id number] 468828 624958 5 DRAINAGE EMPTY 600ML W/MANJULA SUTURE Ethicon 1 [id number] 018134 626094 5 ETHILON 2-0 BLK MONO FS PEEL-A-WAY [facility] 1 [id number] 101339 055722 [id number] 5 [id number] INTRODUCER 9FR. Abscession Angiodynamics 1 [id number] 656968 652300 819272 5 8Fr drainage catheter Hopewell Sci Hopewell 1 [id number] 163109 613961 038206 5 8FR.X 24CM Scientific Ureteral Stent Terumo 5FR Terumo 1 [id number] 798451 765760 5 ANGLED 65CM glide catheter Signature Audit [place] Stage Time Signature Unsigned Intra-Procedure 04/23/2017 Thien 3:49:47 PM Shuffield RT (R) (CV) Signatures Monitor : Thien Signature : [place] RT Date : Time : [address] [place] [address]
[~2017-04-15 05:46] MED LIST changes: +FLORAJEN3 CAPS460 MG PO; +LOMOTIL TABLET1 TAB PO
[2017-04-15 07:27] LABS: BASOPHILS 0.1 % (0-2); EOSINOPHILS 0 % (0-7); HEMATOCRIT 32.3 % (42.0-54.0); HEMOGLOBIN 10.4 g/dL (13.5-17.5); IMMATURE GRANULOCYTES 0.6 % (0-5); LYMPHOCYTES 8.7 % (15-50); MCH 26.7 pg (26.0-34.0); MCHC 32.2 g/dL (31.0-37.0); MCV 82.8 fL (80.0-100.0); MEAN PLATELET VOLUME 10.1 fL (7.4-10.4); MONOCYTES 7.9 % (2-11); NEUTROPHILS 82.7 % (40-80); PLATELET COUNT 166 10x3/uL (130-400); WBC 11.1 10x3/uL (4.8-10.8)
[2017-04-15 07:37] LABS: ALBUMIN 3.7 g/dL (3.4-5.0); ANION GAP 15.3 mmol/L (8-16); BILIRUBIN - TOTAL 0.52 mg/dL (0.2-1.3); CALCIUM 9.3 mg/dL (8.5-10.1); CARBON DIOXIDE 24.3 mmol/L (21.0-32.0); CREATININE - SERUM 1.2 mg/dL (0.6-1.3); POTASSIUM - SERUM 3.6 mmol/L (3.5-5.1); PROTEIN - SERUM 6.8 g/dL (6.4-8.2)
[2017-04-15 08:38] LABS: APPEARANCE CLEAR (CLEAR); BILIRUBIN NEGATIVE (NEGATIVE); COLOR YELLOW (YELLOW); GLUCOSE NEGATIVE (NEGATIVE); KETONE SMALL mg/dL (NEGATIVE); NITRITE NEGATIVE (NEGATIVE); PROTEIN 1+ mg/dL (NEGATIVE); SPECIFIC GRAVITY 1.015 (1.005-1.020)
[2017-04-15 08:41] LABS: BACTERIA MODERATE /hpf (NONE SEEN); EPITHELIAL CELLS 0-5 /hpf (0-5); MUCUS >1+ /lpf (NONE SEEN); RED CELLS - URINE 0-5 /hpf (0-5); WHITE CELLS - URINE 0-5 /hpf (0-5)
[2017-04-15 08:42] LABS: HYALINE CAST RARE /lpf (NONE SEEN)
[2017-04-15 12:56] VITALS: BP 137/84
--- NOTE | 2017-04-15 15:24 | NUR ---
16 FR NGT PLACED TO LEFT NARE, PLACEMENT CHECKED BY KUB DR CHICAS CALLED TO STATE THE NGT WAS IN PLACE
[2017-04-15 16:27] VITALS: BP 138/86; BP 152/88
[2017-04-15 20:00] VITALS: BP 154/85
--- NOTE | 2017-04-15 20:05 | NUR ---
PATIENT RESTING IN BED AND REQUESTED PAIN MEDS WHEN DUE. PATIENT DENIES OTHER NEEDS AT THIS TIME. BED IN LOWEST POSITION AND CALL LIGHT WITHIN REACH. ENCOURAGED THE PATIENT TO CALL IF HE HAS NEEDS.
[2017-04-16] VITALS: BP 130/84
[2017-04-16 02:22] VITALS: BP 137/84; BMI 26.3
[2017-04-16 05:00] VITALS: BP 139/87
[2017-04-16 05:57] LABS: BASOPHILS 0.2 % (0-2); EOSINOPHILS 0.1 % (0-7); HEMATOCRIT 30.1 % (42.0-54.0); HEMOGLOBIN 9.6 g/dL (13.5-17.5); IMMATURE GRANULOCYTES 0.5 % (0-5); LYMPHOCYTES 9.2 % (15-50); MCHC 31.9 g/dL (31.0-37.0); MEAN PLATELET VOLUME 9.9 fL (7.4-10.4); MONOCYTES 12.1 % (2-11); NEUTROPHILS 77.9 % (40-80); PLATELET COUNT 147 10x3/uL (130-400); RBC 3.55 10x6/uL (4.20-6.10); RDW 23.1 % (11.5-14.5)
[2017-04-16 06:15] LABS: MCV 84.8 fL (80.0-100.0); WBC 8.1 10x3/uL (4.8-10.8)
[2017-04-16 06:21] LABS: CALC OSMOLALITY 284 mosm/kg (275-300); CALCIUM 8.4 mg/dL (8.5-10.1); CARBON DIOXIDE 25.5 mmol/L (21.0-32.0); CHLORIDE - SERUM 108 mmol/L (98-107); CREATININE - SERUM 0.9 mg/dL (0.6-1.3); GLUCOSE 82 mg/dL (74-106); POTASSIUM - SERUM 3.8 mmol/L (3.5-5.1); SODIUM 143 mmol/L (136-145); UREA NITROGEN 16 mg/dL (7-18); eGFR NON AFRICAN AMERICAN 87 mL/min (90-120)
--- NOTE | 2017-04-16 07:00 | NUR ---
REPORT RECIEVED ASSUMED CARE. PATIENT SITTING UP IN CHAIR WITH IV INTACT. NO COMPLAINTS. CALL LIGHT WITHIN REACH.
--- NOTE | 2017-04-16 08:00 | NUR ---
PATIENT TO GET GI STUDY DONE.
--- NOTE | 2017-04-16 08:23 | NUR ---
PT RESCHEDULED FOR 04-17-17 DUE TO RESIDUAL CONTRAST FROM CT ON 04-15-17 PER . THIS WAS THE SMALL BOWEL SERIES WITH GASTROGRAFFIN.
--- NOTE | 2017-04-16 08:30 | NUR ---
PATIENT BACK TO ROOM. GOING TO TRY TO DO PROCEDURE TOMORROW BC TOO MUCH DYE LEFT IN BOWEL FROM LAST TEST. PATIENT UP AMBULATING AT THIS TIME.
--- NOTE | 2017-04-16 09:16 | NUR ---
ASSESSMENT COMPLETE, VS STABLE. IV INTACT. NO COMPLAINTS. ENCOURAGED PATIENT TO WALK MORE. VERBALIZED UNDERSTANDING. CALL LIGHT WITHIN REACH.
[2017-04-16 12:19] VITALS: BP 137/89
[2017-04-16 15:46] VITALS: BP 140/90
[2017-04-16 15:51] VITALS: BMI 26.3
--- NOTE | 2017-04-16 16:22 | NUR ---
Patient Name: PATY COON Admission Status: ER Accout number: [id number] Admission Date: 04-15-2017 : 1940 Admission Diagnosis: Attending: MURALI GAMINO Current LOS: 1 Anticipated DC Date: 04-18-2017 Planned Disposition: Home Primary Insurance: MEDICARE A & B Discharge Planning Comments: CM MET WITH PATIENT REGARDING D/C NEEDS AND PLANS. PATIENT STATED HE LIVES WITH HIS (CARLIN) AND SHE WILL DRIVE HIM HOME AT DISCHARGE. PATIENT HAS 2 STEPS W/RAILS TO ENTER HOME AND NO STAIRS INSIDE. PATIENT STATED HE IS INDEPENDENT WITH HIS CARE AND HAS NO DME AT HOME. PATIENTS PCP IS DR. GAMINO AND PHARMACY IS [facility]. PATIENT IS REFUSING HOME HEALTH AT THIS TIME. CM WILL CONTINUE TO FOLLOW PATIENT WITH D/C NEEDS AND PLANS. PCP DR. GAMINO [facility] [phone] CARLIN () [phone] Cafeteria Worker: Paige Benitez Is the patient Alert and Oriented? Yes 0 * How many steps to enter\exit or inside your home? 2 W/RAILS 0 * PCP DR. GAMINO 0 * Pharmacy [facility] 0 * Preadmission Environment Home with Family 0 * ADLs Independent 0 * Equipment None 0 * List name and contact numbers for known caregivers / representatives who currently or will assist patient after discharge: CARLIN [phone] 0 * Community resources currently utilized None 0 * Additional services required to return to the preadmission environment? Yes 0 * Can the patient safely return to the preadmission environment? Yes 0 * Has this patient been hospitalized within the prior 30 days at any hospital? No 0 Grand Total: 0
--- NOTE | 2017-04-16 19:00 | NUR ---
PATIENT CVL DRESSING CHANGED AT THIS TIME. NO COMPLAINTS. CALL LIGHT WITHIN REACH.
[2017-04-16 20:00] VITALS: BP 128/49
--- NOTE | 2017-04-16 21:56 | NUR ---
REC'D SITTING UP IN BED. ALERT AND ORIENTED X4. DENIED PAIN AT THIS TIME. IS WAITING FOR ORDER FOR SOME MILK OF MAG TO COME IN. IS ANXIOUS TO GO HOME. WILL ADMIN PM/AM MEDS PRESCRIBED. NO DISTRESS NOTED. DENIED NEEDS AT THIS TIME. INSTRUCTED TO CALL IF NEEDED ANYTHING, VERBALIZED UNDERSTANDING. BED LOW, LOCKED, CALL LIGHT IN REACH.
--- NOTE | 2017-04-17 02:21 | NUR ---
PATIENT IS AWAKE AND ALERT, DENIES NEEDS AT THIS TIME. BFED IN LOWEST POSITION, CALL LIGHT IN REACH. BED RAILS UP X'S 2.
[2017-04-17 07:00] LABS: BASOPHILS 0.3 % (0-2); EOSINOPHILS 0.1 % (0-7); HEMATOCRIT 28.7 % (42.0-54.0); HEMOGLOBIN 9.2 g/dL (13.5-17.5); IMMATURE GRANULOCYTES 0.4 % (0-5); LYMPHOCYTES 9.1 % (15-50); MCH 27.1 pg (26.0-34.0); MCHC 32.1 g/dL (31.0-37.0); MCV 84.7 fL (80.0-100.0); MEAN PLATELET VOLUME 9.9 fL (7.4-10.4); MONOCYTES 12.6 % (2-11); NEUTROPHILS 77.5 % (40-80); PLATELET COUNT 130 10x3/uL (130-400); RBC 3.39 10x6/uL (4.20-6.10); WBC 6.9 10x3/uL (4.8-10.8)
[2017-04-17 07:16] LABS: CALC OSMOLALITY 282 mosm/kg (275-300); CALCIUM 8.4 mg/dL (8.5-10.1); CARBON DIOXIDE 25.4 mmol/L (21.0-32.0); CHLORIDE - SERUM 108 mmol/L (98-107); CREATININE - SERUM 0.9 mg/dL (0.6-1.3); POTASSIUM - SERUM 3.6 mmol/L (3.5-5.1); SODIUM 142 mmol/L (136-145); UREA NITROGEN 17 mg/dL (7-18); eGFR NON AFRICAN AMERICAN 87 mL/min (90-120)
[2017-04-17 07:18] LABS: GLUCOSE 70 mg/dL (74-106)
[2017-04-17 12:17] VITALS: BP 124/78
[2017-04-17 16:02] VITALS: BP 125/74
--- NOTE | 2017-04-17 19:40 | NUR ---
PATIENT RESTING IN BED AND DENIES NEEDS AT THIS TIME. BED IN LOWEST POSITION AND CALL LIGHT WITHIN REACH. ENCOURAGED THE PATIENT TO CALL IF HE HAS NEEDS.
[2017-04-17 20:00] VITALS: BP 129/81
[2017-04-18] VITALS: BP 133/80
--- NOTE | 2017-04-18 00:54 | NUR ---
RECEIVED CARE OF PATIENT.
[2017-04-18 04:00] VITALS: BP 135/84
[2017-04-18 06:04] LABS: BASOPHILS 0.3 % (0-2); EOSINOPHILS 0.3 % (0-7); HEMATOCRIT 29.5 % (42.0-54.0); HEMOGLOBIN 9.7 g/dL (13.5-17.5); IMMATURE GRANULOCYTES 0.4 % (0-5); MCH 27.6 pg (26.0-34.0); MCHC 32.9 g/dL (31.0-37.0); MCV 83.8 fL (80.0-100.0); MEAN PLATELET VOLUME 9.7 fL (7.4-10.4); MONOCYTES 10.5 % (2-11); NEUTROPHILS 79.5 % (40-80); PLATELET COUNT 143 10x3/uL (130-400); RBC 3.52 10x6/uL (4.20-6.10); RDW 22.7 % (11.5-14.5); WBC 7.9 10x3/uL (4.8-10.8)
[2017-04-18 06:13] LABS: CALC OSMOLALITY 278 mosm/kg (275-300); CALCIUM 8.1 mg/dL (8.5-10.1); CARBON DIOXIDE 26.4 mmol/L (21.0-32.0); CHLORIDE - SERUM 105 mmol/L (98-107); CREATININE - SERUM 0.9 mg/dL (0.6-1.3); GLUCOSE 88 mg/dL (74-106); POTASSIUM - SERUM 3.3 mmol/L (3.5-5.1); SODIUM 140 mmol/L (136-145); UREA NITROGEN 14 mg/dL (7-18); eGFR NON AFRICAN AMERICAN 87 mL/min (90-120)
--- NOTE | 2017-04-18 07:45 | NUR ---
ASSESSMENT PER FLOW SHEET.PT WITHOUT DISTRESS.TOLERATING DIET,BUT REPORTS GAS PAIN THIS AM.DENIES FURTHER NEEDS.CALL LIGHT IN REACH
[2017-04-18 08:32] VITALS: BP 130/94
[2017-04-18 12:12] VITALS: BP 122/79
--- NOTE | 2017-04-18 13:18 | NUR ---
NUTRITION F/U CHART REVIEWED. PER MD NOTE PT TOLERATING DIET. VISITORS CURRENTLY AT BEDSIDE. NOTE POSSIBLE DC. WILL CONTINUE TO PROVIDE DIET, HONOR FOOD PREFERENCES. RD FOLLOWING
[2017-04-18 16:04] VITALS: BP 116/70
--- NOTE | 2017-04-18 19:39 | NUR ---
REMAINS WITHOUT NEEDS,WOITHOUT CHANGE.CONT PLAN OF CARE
[2017-04-18 20:00] VITALS: BP 117/67
--- NOTE | 2017-04-18 21:10 | NUR ---
SCHEDULED MEDICATIONS GIVEN AT THIS TIME. PT REFUSED MILK OF MAG DUE TO HAVING MULTIPLE BM'S TODAY, STATES "I DO NOT NEED IT NOW". DENIES ANY FURTHER NEEDS. CALL LIGHT IN REACH.
[2017-04-19] VITALS: BP 126/79
--- NOTE | 2017-04-19 03:00 | NUR ---
PT RESTING WITH EYES CLOSED. NO DISTRESS NOTED, BREATHING EQUAL AND NON LABORED. WILL CONTINUE TO MONITOR
[2017-04-19 04:00] VITALS: BP 132/80
--- NOTE | 2017-04-19 07:00 | NUR ---
REPORT RECIEVED ASSUMED CARE. PATIENT IN BED WITH IV INTACT. NO COMPLAINTS AT THIS TIME. CALL LIGHT WITHIN REACH.
[2017-04-19 08:40] VITALS: BP 145/80
[2017-04-19 12:39] VITALS: BP 130/84
[2017-04-19 16:51] VITALS: BP 129/81
--- NOTE | 2017-04-19 18:37 | NUR ---
PATIENT IN BED WITH IV INTACT. NO COMPLAINTS OR PROBLEMS AT THIS TIME. FAMILY AT BEDSIDE. CALL LIGHT WITHIN REACH.
[2017-04-19 19:23] VITALS: BP 131/85
[2017-04-20] VITALS: BP 164/86
--- NOTE | 2017-04-20 02:55 | NUR ---
PT SLEEPING. RESP EASY, UNLABORED. NO DISTRESS NOTED. CONTINUE CIGARETTE EXAMINER'S PLAN OF CARE.
[2017-04-20 04:00] VITALS: BP 163/94
--- NOTE | 2017-04-20 07:50 | NUR ---
SLEEPING, AROUSES EASILY, BREATHING EVEN UNLABORED, NO DISTRESS NOTED, CALL LIGHT IN REACH, BED LOWEST POSITION, WILL CONTINUE TO MONITOR
--- NOTE | 2017-04-20 10:00 | NUR ---
Attempted to restart Rt Infusaport with 1" Mccarty needle x2 without success using sterile technique. Insertion site cleaned with Chloraprep prior to insertion attempt x 2. Site covered with sterile 2x2 and tegaderm. Called ICU nurse, Nguyễn Alas RN, to re-attempt.
[2017-04-20 10:11] VITALS: BP 145/86
--- NOTE | 2017-04-20 10:29 | NUR ---
LUAN ROSARIO CALLED ME TO COME LOOK AT INFUSAPORT. SHE WAS HAVING TROUBLE ACCESSING. SHE HAD ATTEMPTED X2. PIV STICK ATTEMPTED X1 AT LEFT FOREARM UNSUCESSFUL BY MYSELF. ACCESS ACQUIRED SUCCESSFULLY X1 STICK AT RIGHT UPPER CHEST INFUSAPORT. STERILE TECHNIQUE USED.
[2017-04-20 12:43] VITALS: BP 131/89
--- NOTE | 2017-04-20 19:20 | NUR ---
RECIEVED SHIFT REPORT. PT IS LYING IN BED. ALERT AND ORIENTED AND ABLE TO VERBALIZE NEEDS. IV IS PATENT AND FLUIDS ARE RUNNING PER ORDER. PT IS AMBULATORY WITH ASSISTANCE. CPAP ON AT THIS TIME. PT DENIES ANY PAIN AT THIS TIME. NO NEEDS ARE VERBALIZED AT THIS TIME. WILL CONTINUE TO MONITOR. SIDE RAILS ARE UP X 2. BED IS IN LOWEST POSITION. CALL LIGHT IS WITHIN REACH.
[2017-04-20 20:00] VITALS: BP 134/77
--- NOTE | 2017-04-20 20:14 | NUR ---
SHIFT ASSESSMENT COMPLETED. NIGHT MEDS GIVEN WITH NO PROBLEMS. NO NEEDS ARE VOICED. WILL MONITOR. SIDE RAILS X 2. BED LOW. CALL LIGHT IN REACH.
[2017-04-21] VITALS: BP 132/85
[2017-04-21 04:00] VITALS: BP 128/71
--- NOTE | 2017-04-21 07:00 | NUR ---
REPORT RECIEVED, ASSUMED CARE OF PT. KATEG WITH EYES SHUT, EASILY AROUSED, NO COMPLAINTS AT THIS TIME. BED IN LOWEST POSITION, SIDE RAILS UP X 2, CALL LIGHT WITHIN REACH.
[2017-04-21 08:43] VITALS: BP 122/87
[2017-04-21 16:13] VITALS: BP 126/81
--- NOTE | 2017-04-21 19:15 | NUR ---
RECIEVED SHIFT REPORT. PT IS LYING IN BED. ALERT AND ORIENTED AND ABLE TO VERBALIZE NEEDS. IV IS PATENT AND FLUIDS ARE RUNNING PER ORDER. PT DENIES ANY PAIN AT THIS TIME. PT IS AMBULATORY BUT WAS INSTRUCTED TO CALL FOR ANY ASSISTANCE NEEDED. NO NEEDS ARE VERBALIZED AT THIS TIME. WILL CONTINUE TO MONITOR. SIDE RAILS ARE UP X 2. BED IS IN LOWEST POSITION. CALL LIGHT IS WITHIN REACH.
[2017-04-21 19:57] VITALS: BP 135/84
--- NOTE | 2017-04-21 20:45 | NUR ---
SHIFT ASSESSMENT COMPLETED. NIGHT MEDS GIVEN WITH NO PROBLEMS. NO NEEDS ARE VOICED. WILL MONITOR. SIDE RAILS X 2. BED LOW. CALL LIGHT IN REACH.
[2017-04-22 00:11] VITALS: BP 137/87
[2017-04-22 04:00] VITALS: BP 121/79
--- NOTE | 2017-04-22 06:55 | NUR ---
REPORT RECIEVED, ASSUMED CARE OF PT. RESTING, AT BEDSIDE. R PORT INFUSING ORDERED, DRSG C/D/I. TELEMETRY IN PLACE. RESERVE R ARM. NO COMPLAINTS AT THIS TIME. BED IN LOWEST POSITION, SIDE RAILS UP X 2, CALL LIGHT WITHIN REACH.
[2017-04-22 09:07] VITALS: BP 132/71
[2017-04-22 12:31] VITALS: BP 128/79
--- NOTE | 2017-04-22 13:47 | NUR ---
PRE-OP MEDICATIONS STARTED.
--- NOTE | 2017-04-22 14:53 | NUR ---
NUTRITION F/U CHART REVIEWED. PT CURRENTLY NPO FOR PROCEDURE. WILL MONITOR DIET ADVANCEMENT, PO INTAKE. RD FOLLOWING
--- NOTE | 2017-04-22 15:00 | NUR ---
PT LEFT FLOOR WITH OR.
--- NOTE | 2017-04-22 17:55 | NUR ---
THE PATIENT REPORTS NO PAIN BUT FEELS THE NEED TO URINATE. JOYNER CATHETER WAS DISCUSSED WITH THE PATIENT. FLOEY WAS DRAINING WELL.
[2017-04-22 18:16] VITALS: BP 134/81
--- NOTE | 2017-04-22 18:19 | NUR ---
PT RETURNED TO FLOOR FROM RECOVERY. VSS. JOYNER CATHETER IN PLACE. R PORT INFUSING FLUIDS ORDERED.
--- NOTE | 2017-04-22 19:15 | NUR ---
RECIEVED SHIFT REPORT. PT IS LYING IN BED. ALERT AND ORIENTED AND ABLE TO VERBALIZE NEEDS. IV IS PATENT AND FLUIDS ARE RUNNING PER ORDER. JOYNER IS DRAINING URINE BY GRAVITY. PT DENIES ANY PAIN WITH FUN HOUSE OPERATOR PUMP. PT IS AMBULATORY WITH ASSISTANCE. NO NEEDS ARE VERBALIZED AT THIS TIME. AT BEDSIDE. SIDE RAILS ARE UP X 2. BED IS IN LOWEST POSITION. CALL LIGHT IS WITHIN REACH.
--- NOTE | 2017-04-22 21:10 | NUR ---
SHIFT ASSESSMENT COMPLETED. NIGHT MEDS GIVEN WITH NO PROBLEMS. NO NEEDS ARE VOICED. WILL MONITOR. AT BEDSIDE. SIDE RAILS X 2. BED LOW. CALL LIGHT IN REACH.
--- NOTE | 2017-04-22 23:58 | NUR ---
STOOL SENT TO LAB FOR WARRENTED TESTS.
[2017-04-23] VITALS: BP 122/73
[2017-04-23 04:00] VITALS: BP 132/79
[2017-04-23 05:10] LABS: BASOPHILS 0.2 % (0-2); EOSINOPHILS 0.6 % (0-7); HEMATOCRIT 28.8 % (42.0-54.0); HEMOGLOBIN 9.2 g/dL (13.5-17.5); IMMATURE GRANULOCYTES 0.5 % (0-5); LYMPHOCYTES 9.6 % (15-50); MCH 27.1 pg (26.0-34.0); MCHC 31.9 g/dL (31.0-37.0); MCV 84.7 fL (80.0-100.0); MEAN PLATELET VOLUME 9.7 fL (7.4-10.4); MONOCYTES 10.4 % (2-11); NEUTROPHILS 78.7 % (40-80); PLATELET COUNT 129 10x3/uL (130-400); RDW 21.9 % (11.5-14.5); WBC 6.4 10x3/uL (4.8-10.8)
[2017-04-23 05:33] LABS: CALC OSMOLALITY 274 mosm/kg (275-300); CALCIUM 8.3 mg/dL (8.5-10.1); CARBON DIOXIDE 27.9 mmol/L (21.0-32.0); CHLORIDE - SERUM 106 mmol/L (98-107); CREATININE - SERUM 0.9 mg/dL (0.6-1.3); GLUCOSE 79 mg/dL (74-106); POTASSIUM - SERUM 3.1 mmol/L (3.5-5.1); SODIUM 138 mmol/L (136-145); UREA NITROGEN 13 mg/dL (7-18); eGFR NON AFRICAN AMERICAN 87 mL/min (90-120)
--- NOTE | 2017-04-23 07:00 | NUR ---
REPORT RECIEVED, ASSUMED CARE OF PT. NO SIGNS OF ACUTE DISTRESS.
[2017-04-23 07:34] LABS: APTT 33.7 SECONDS (22.8-39.4); INR 1.25 (0.85-1.17); PROTIME 15.6 SECONDS (11.6-15.0)
[2017-04-23 08:26] VITALS: BP 132/88
[2017-04-23 11:51] VITALS: BP 143/67
--- NOTE | 2017-04-23 12:11 | OP ---
PATIENT NAME: PATY COON MEDICAL RECORD: [id number] :40 LOCATION:D.MS [id number] ADMISSION DATE:04/15/17 SURGEON: EDSON PIKE MD DATE OF OPERATION: 04/15/2017 SURGEON: Edson Pike MD ANESTHESIA: General anesthesia by Dr. Kingsley Spain. PREOPERATIVE DIAGNOSIS: Left distal ureteral 4 mm stone, right renal stones. PROCEDURES: Cystoscopy, direct vision, internal urethrotomy of urethral stricture. FINDINGS: Bulbar urethral stricture. Nonobstructive prostate, but vascular bladder neck. No bladder tumors. Unable to find the ureteral orifices. On fluoroscopy, 2 left pelvic radiodensities are seen. Also, there are radiodense possible right renal stones seen. SPECIMENS: None. ESTIMATED BLOOD LOSS: None. CLINICAL HISTORY: This is a 77-year-old male, who was admitted with abdominal pain and diarrhea. He has a history of lymphoma. CT imaging suggests that he has a 4-mm left distal ureteral stone and he has a cluster of stones, which are nonobstructive in the right kidney. My plan had been to bring him to the OR for ureteroscopy and removal of the left stone. Then, he would get bilateral ureteral stent insertion. On the left side, the stent would be for the post-procedure on the left ureteroscope. On the right side, it would be in preparation for right ESWL. He comes today to have this done. He is not allergic to any medications. He is already on antibiotics on the floor and we did not give him any further antibiotics. DESCRIPTION OF PROCEDURE: The patient was given induction of general anesthesia. He was then placed in the dorsal lithotomy position, prepped and draped. Lidocaine jelly was inserted into the urethra. A 21-Romanian cystoscope was inserted with a 30-degree lens. The penile urethra was normal until we came to the bulbar urethra when a very tight urethral stricture was seen. A sensor guidewire was then inserted through the stricture into the bladder as verified under fluoroscopy. The scope was then removed, leaving the wire in place. The optic urethrotome with a 0-degree lens and a cold knife was used to incise the stricture at the 12 o'clock position. We were finally able to get through. The prostate is nonobstructive, but it is vascular. There is somewhat of an elevation of the bladder neck. Going into the bladder, no bladder tumors were seen. I switched back to the cystoscope and backloaded the wire onto the cystoscope. We searched for rather prolonged period of time and it was very difficult to find the ureteral orifice on either side. The bleeding from the urethral incision as well as bleeding from rubbing of the vascular prostatic urethra made visualization quite difficult. Dr. Spain gave IV methylene blue to try to help find the ureteral orifices, but even after at least 5 minutes of observation, we were not able to identify the ureteral orifices. I therefore decided to give up on continuing to look for the orifices much further. We had spent at least half an hour looking. A 16-Romanian Stone catheter was inserted into the bladder and the balloon was inflated with 10 cc of sterile water. The OPERATIVE REPORT [id number] PATY COON catheter can be removed in a week. I will have interventional radiology place an antegrade left ureteral stent tomorrow in order to better define the ureteral orifice at least on the left side. TRANSINT:[id number] Voice Confirmation ID: [id number] DOCUMENT ID: [id number] EDSON PIKE MD at 1211 CC: [id number] DICTATION DATE: 04/22/17 174 DINKEY LOCOMOTIVE ENGINEER: 04/22/17 2200 ADM IN [place] [id number] [place] [address]
--- NOTE | 2017-04-23 13:40 | NUR ---
CHANGED STAT-LOCK ON CATHETER, SECURED TO L THIGH.
--- NOTE | 2017-04-23 13:43 | NUR ---
PT LEFT FLOOR WITH INTERVENTIONAL RADIOLOGY.
--- NOTE | 2017-04-23 16:09 | NUR ---
PT RETURNED TO FLOOR FROM INTERVENTIONAL RADIOLOGY. VSS.
--- NOTE | 2017-04-23 19:20 | NUR ---
RECIEVED SHIFT REPORT. PT IS LYING IN BED. ALERT AND ORIENTED AND ABLE TO VERBALIZE NEEDS. IV IS PATENT AND FLUIDS ARE RUNNING PER ORDER. JOYNER IS DRAINING URINE BY GRAVITY. BILI DRAIN TO LEFT FLANK PATENT AND DRAINING. DRESSING TO RIGHT FLANK C/D/I. PT IS AMBULATORY WITH ASSISTANCE. PT DENIES ANY PAIN WITH LEATHER SORTER PUMP. NO NEEDS ARE VERBALIZED AT THIS TIME. WILL CONTINUE TO MONITOR. FAMILY AT THE BEDSIDE. SIDE RAILS ARE UP X 2. BED IS IN LOWEST POSITION. CALL LIGHT IS WITHIN REACH.
[2017-04-23 20:00] VITALS: BP 129/72
[2017-04-24 05:22] LABS: BASOPHILS 0 % (0-2); EOSINOPHILS 0.5 % (0-7); HEMATOCRIT 32.3 % (42.0-54.0); HEMOGLOBIN 10.4 g/dL (13.5-17.5); IMMATURE GRANULOCYTES 0.9 % (0-5); LYMPHOCYTES 7.3 % (15-50); MCH 27.4 pg (26.0-34.0); MCHC 32.2 g/dL (31.0-37.0); MONOCYTES 15.9 % (2-11); NEUTROPHILS 75.4 % (40-80); RDW 21.9 % (11.5-14.5); WBC 7.8 10x3/uL (4.8-10.8)
[2017-04-24 05:34] LABS: PLATELET COUNT 164 10x3/uL (130-400)
[2017-04-24 05:35] LABS: ANION GAP 14.1 mmol/L (8-16); CALCIUM 8.6 mg/dL (8.5-10.1); CARBON DIOXIDE 25.2 mmol/L (21.0-32.0); CREATININE - SERUM 1.1 mg/dL (0.6-1.3); POTASSIUM - SERUM 3.3 mmol/L (3.5-5.1)
--- NOTE | 2017-04-24 08:00 | NUR ---
REC'D IN ROOM AWAKE AND ALERT. RESP EVEN AND UNLABORED WITH NO DISTRESS NOTED. CAN EXPRESS NEEDS AND WANTS. NO C/O NOTED OR VOICED. HAS NEPHROSTOMY TUVE NOTE TO LEFT FLANK AND DRAIN NOTED TO RIGHT FLANK. SWELLING NOTED TO RIGHT ARM. ASSESSMENT COMPLETED. AT BEDSIDE.
[2017-04-24 09:46] VITALS: BP 144/86
[2017-04-24 12:36] VITALS: BP 143/89
--- NOTE | 2017-04-24 13:31 | NUR ---
OFF UNIT AT THIS TIME IN SURGERY.
--- NOTE | 2017-04-24 16:02 | NUR ---
CYSTO WAS DONE THEN TURNED PRONE FOR PROCEDURE, THEN POST PROCEDURE TURNED BACK FOR ANOTHER CYSTO, KAREEMRLEY
--- NOTE | 2017-04-24 17:00 | NUR ---
REC'D BACK FROM RECOVERY EASILY AROUSED WHEN NAME IS CALLED. NO DISTRESS NOTED. HAS DRAIN NOTED TO RIGHT FLANK. NO C/O PAIN OR DISCOMFORT NOTED. POST OP VITAL WAS STARTED AND WAS IN STABLE CONDITION. PT DID HAVE SOME NOTED CONFUSION UPON RETURN BUT SLOW WENT AWAY. FED SUPPER TOLERATED WELL AT THIS TIME. WILL CONTINUE TO OBSERVE FOR NEEDS. C/L IN REACH A BEDSIDE.
[2017-04-24 17:06] VITALS: BP 130/71
--- NOTE | 2017-04-24 19:30 | NUR ---
PT IS IN BED VISITING WITH FAMILY AND FRIENDS, STATED NO PAIN AT THIS TIME. BED IS IN LOW POSITION, CALL LIGHT IN REACH, CONTINUE WITH PLAN OF CARE
--- NOTE | 2017-04-24 23:52 | NUR ---
WENT IN TO FIX TELEMETRY THAT IS OFF, PT IS LYING IN BED, EYES CLOSED EVEN RISE AND FALL OF CHEST, SP IS ASLEEP IN CHAIR NEXT TO BED. CONTINUE WITH PLAN OF CARE
[2017-04-25 04:00] VITALS: BP 132/74
--- NOTE | 2017-04-25 05:12 | NUR ---
RN NOTE: PT RESTING IN LOW MEJIA'S POSITION WITH EYES CLOSED AND UNLABORED BREATHING. RIGHT PORT ACCESSED WITH NS INFUSING AT 30 ML / HR. WILL CONTINUE TO MONITOR FOR NEEDS.
--- NOTE | 2017-04-25 06:50 | NUR ---
RECEIVED REPORT, ASSUMED CARE OF PT. PT SITTING UP IN BED, AT BEDSIDE. NO COMPLAINTS AT THIS TIME. R FLANK DRSG WITH DRAINAGE BAG IN PLACE, DRSG C/D/I. R PORT INFUSING ORDERED, DRSG C/D/I. BED IN LOWEST POSITION, SIDE RAILS UP X 2, CALL LIGHT WITHIN REACH.
[2017-04-25 07:01] LABS: ANION GAP 11.3 mmol/L (8-16); CALCIUM 8.4 mg/dL (8.5-10.1); CARBON DIOXIDE 25.8 mmol/L (21.0-32.0); CREATININE - SERUM 1.1 mg/dL (0.6-1.3); MAGNESIUM - SERUM 1.4 mg/dL (1.8-2.4); PHOSPHOROUS 3.4 mg/dL (2.5-4.9); POTASSIUM - SERUM 3.1 mmol/L (3.5-5.1)
[2017-04-25 08:22] VITALS: BP 124/84
--- NOTE | 2017-04-25 09:28 | OP ---
PATIENT NAME: PATY COON MEDICAL RECORD: [id number] :40 LOCATION:D.MS Kay2236 ADMISSION DATE:04/15/17 SURGEON: EDSON PIKE MD DATE OF OPERATION: 04/24/2017 SURGEON: Edson Pike MD ANESTHESIA: General anesthesia by Adolfo Nayak CRNA PREOPERATIVE DIAGNOSES: Right renal stone times 3, each about 5 mm in size. Also right renal pelvis tissue thickening. PROCEDURES: Cystoscopy, removal of left ureteral stent, removal of left nephrostomy tube, right percutaneous nephrolithotomy, and right renal pelvis biopsy. FINDINGS: Nonobstructive prostate. Very laterally located ureteral orifices in the bladder. Radiodense right renal stones. Renal pelvis appears normal without any visible tumors. Enlarged lymph nodes visible in the mucosa of the renal pelvis. SPECIMENS: 1. Right renal stones. 2. Right renal pelvis biopsy. 3. Left ureteral stent. CLINICAL HISTORY: This is a 77-year-old male with known history of lymphoma. He is being treated with chemotherapy for this. He was admitted to the hospital for left abdominal pain as well as diarrhea. Stool has been sent for C. difficile toxin and it is negative. In the interim, he had CT scan imaging which showed multiple large stones in the right renal pelvis. There was also thickening of the renal pelvis wall. He does have a history of previous bladder cancer as well as lymphoma. Therefore, this raised the question of any kind of a tumor mass in the renal pelvis of the right kidney. Also, there was a left 4-mm distal ureteral stone, which is probably the cause of his left-sided abdominal pain. Few days ago, I tried to perform left ureteroscopy to remove this stone. I encountered a tight bulbar urethral stricture. I had to incise the urethral stricture and I could not find the ureteral orifices. We had given him methylene blue in an effort to find the ureteral orifices, but we could not find the ureteral orifices. In the interim, interventional radiology has inserted bilateral nephrostomy tubes and inserted an antegrade left ureteral stent. Insertion of the left ureteral stent actually pushed the stone out into the bladder and he has voided it out. On the right side, I placed nephroureteral access for right PCNL. Today, he comes to have the PCNL or percutaneous nephrolithotomy procedure done. Since he is already on IV antibiotics on the floor, we did not give him any further antibiotics. HE IS ALLERGIC TO LEVAQUIN. He is on IV Ancef on the floor. DESCRIPTION OF PROCEDURE: The patient was first placed in the supine position on a stretcher and frog legged. We prepped and draped him. A rigid 21-Liechten[place] Citizen cystoscope was placed. The area of incision through the urethral stricture was still wide open. The patient's prostate was nonobstructive. We saw both ureteral stents. A grasping forceps was placed around left ureteral stent and it was entirely removed and sent to pathology. We did place the grasping forceps on the right nephroureteral access catheter and tried to pull it out OPERATIVE REPORT [id number] PATY COON through the urethral meatus. However, since it is sutured to the skin of the back, it was not able to extend far down enough and recoil back into the proximal urethra. At this point, we turned the patient into prone position. We used jelly rolls to support his chest. His head was well supported. All pressure points were supported. The suture holding the left nephrostomy tube was cut and the left nephrostomy tube was entirely removed. A dressing of 4 x 4 gauze and a Tegaderm was placed over the left nephrostomy tube site. We then turned our attention to the right nephroureteral access. This whole area was prepped and then draped using a craniotomy drape. The nephroureteral access was accessed using an Amplatz Super Stiff wire. This went down into the bladder and it coiled up in the bladder instead of going out to the penis. The wire was left in place while the ureteral catheter was completely removed. A 1-cm incision was made on either side of the wire. We then placed a dual lumen catheter over this wire down to the proximal ureter. A Sensor wire was then placed down the second lumen into the bladder. This Sensor wire will serve as our safety wire. Once the [address], the dual lumen catheter was removed. The wires were kept in place. The Sensor wire was clamped to the drapes to serve as our safety wire. We worked over the Super Stiff wire. The NephroMax access tract dilation balloon was placed down. The stones could be seen on fluoroscopy as radiodensities near the UP junction. The apex of the balloon was placed near the stones. The balloon was inflated with 18 atmospheres of pressure and a working sheath was placed down over the balloon into the patient. The balloon was then completely deflated and removed entirely, leaving the wires and the working sheath in place. The nephroscope was then placed down into the renal pelvis. Blood clots were removed using grasping forceps and the Danish LithoClast ultrasonic probe. This suctions out stone and blood clots as well as breaking down stones. We saw 3 green colored stones in the renal pelvis. Most likely they are green colored because of the recent exposure to methylene blue. I placed the prollie Perc NCircle basket around each of the stones individually and we removed them by withdrawing them with the scope as a unit. No further stones were visible either through the scope or fluoroscopically. The renal pelvis itself seemed to be intact with no evidence of transitional cell tumors. There were some lymphoid follicles visible in the wall of the renal pelvis. From 2 sites, cold cup biopsy forceps were placed and specimens of the renal pelvis wall were obtained. This was placed on to [facility] and then into formalin for pathologic review. No active bleeding was seen. The nephroscope was then removed. A 24-Liechten[place] Citizen Malecot nephrostomy tube was placed down into the renal pelvis. The stylet was removed to allow the Malecot wings to expand. Then, the working sheath as well as the Super Stiff wire were entirely removed. Also, the safety wire was removed entirely. The Malecot nephrostomy tube was then sutured to the skin using 2-0 nylon. Dressings were placed around the tube consisting of 4 x 4 gauze and this was further overlaid with more 4 x 4 gauze and ABD pad and tape. The nephrostomy tube was put to bag drainage. The patient was awakened and brought to the recovery room. From my viewpoint, he can go home with the nephrostomy tube going to bag drainage. I can see him next week in the office to have the nephrostomy tube removed. TRANSINT:[id number] Voice Confirmation ID: [id number] DOCUMENT ID: [id number] OPERATIVE REPORT [id number] PATY COON ROBERT S MD at 0928 CC: [id number] DICTATION DATE: 04/24/17 1607 NURSE RECEPTIONIST: 04/24/17 1829 ADM IN [facility] [address] [place] [address]
--- NOTE | 2017-04-25 11:13 | PN ---
PATIENT:PATY COON MEDICAL RECORD: [id number] LOCATION:D.MS Kay223 ADMISSION DATE: 04/15/17 PROGRESS NOTE DATE OF SERVICE: 04/17/2017 Progress Note Addendum CHIEF COMPLAINT: Better. He is not having any nausea. There was radiographic evidence of small-bowel obstruction, has resolved. He has big smile on his face. I have discussed his case with Dr. Barrios. I am going to give him a regular diet. I will see him on a p.r.n. basis. No symptoms. Nothing aggravates. Nothing alleviates. This is a progress note addendum. For the typed portion of the progress note, please see the chart. This would include the past medical and surgical history, allergies, social history as well as current medications. REVIEW OF SYSTEMS: No nausea, no vomiting, no fever, no chills. No abdominal pain. Review of systems is negative other than as is described above. PHYSICAL EXAMINATION: GENERAL: The patient does not appear acutely ill. He does not appear chronically ill. VITAL SIGNS: Reviewed. HEAD: External ears appear normal. EYES: Extraocular movements are intact. NECK: Trachea is midline. CHEST: No intercostal retractions. PULMONARY: Nonlabored, no stridor. ABDOMEN: No peritonitis with movement. INTEGUMENT: No rash. PSYCHIATRIC: Normal affect. NEUROLOGIC: Nonfocal, no lethargy. The patient answers questions appropriately, moves all extremities well. BACK: No thoracic kyphosis. LYMPHATIC: No lymphangitic streaking of the exposed extremities. IMPRESSION: Resolved small-bowel obstruction. PLAN: Advancement of diet. I will see him on a p.r.n. basis. TRANSINT:[id number] Voice Confirmation ID: [id number] DOCUMENT ID: [id number] PROGRESS NOTE [id number] PATY COON ROBERT MD at 1113 CC: [id number] DICTATION DATE: 04/18/17 1748 RIVET HOLE PUNCHER: 04/19/17 0140 ADM IN [facility] [address] [place] [id number]
--- NOTE | 2017-04-25 11:13 | PN ---
PATIENT:PATY COON MEDICAL RECORD: [id number] LOCATION:D.MS Kay223 ADMISSION DATE: 04/15/17 PROGRESS NOTE DATE OF SERVICE: 04/16/2017 PROGRESS NOTE ADDENDUM CHIEF COMPLAINT: Improved. This is for his progress note on 04/16/2017, this is a progress note addendum. For the typed portion of the progress note, please see the chart. This would include the past medical and surgical history, allergies, social history, and family history well as current medications. He is improved. I received a call from the radiologist this morning. They stated that he had significant amount of dye within his colon and it would be difficult to perform a small bowel follow through. This is a good indication that perhaps he has an ileus or more likely a partial small-bowel obstruction. I have discussed this case personally with Dr. Barrios, his primary care physician. I am going to give him a cathartic to try to see if we can clean out his colon. He has not had a bowel movement. He has not been passing flatus. Palpation aggravates. Nothing alleviates. His symptoms are mild. They are improving. This is a progress note addendum. For the typed portion of the progress note, which would include the past medical and surgical history, allergies, social history, and family history as well as current medications, please see the chart. REVIEW OF SYSTEMS: No nausea, no vomiting, no fever, no chills, no chest pain, no shortness of breath. No headache, no back pain. The review of systems is negative other than as is described above. PHYSICAL EXAMINATION: GENERAL: The patient does not appear acutely ill. He does not appear chronically ill. VITAL SIGNS: Reviewed. HEAD: External ears appear normal. EYES: Extraocular movements are intact. NECK: Trachea is midline. CHEST: No intercostal retractions. PULMONARY: Nonlabored, no stridor. ABDOMEN: No peritonitis with movement. EXTREMITIES: No peripheral cyanosis. INTEGUMENT: No rash, no ulcerations. PSYCHIATRIC: Normal affect. NEUROLOGIC: Nonfocal, no lethargy. The patient answers questions appropriately, moves all extremities well. BACK: No thoracic kyphosis. LYMPHATIC: No lymphangitic streaking of the exposed extremities. IMPRESSION: Likely resolving partial small-bowel obstruction. PLAN: I will cancel small bowel follow through. I will give him some milk of PROGRESS NOTE [id number] PATY COON magndavid or magnesium citrate tonight. TRANSINT:[id number] Voice Confirmation ID: [id number] DOCUMENT ID: [id number] MANJINDER DICKOSN MD at 1113 CC: [id number] DICTATION DATE: 04/16/171942 LOOPING INSPECTOR: 04/17/17 0404 ADM IN [place] [id number] [place] [address]
--- NOTE | 2017-04-25 11:13 | CN ---
PATIENT NAME:PATY COON MEDICAL RECORD: [id number] : 40 LOCATION:[facility] ADMIT DATE: 04/15/17 ACCOUNT: [id number] CONSULTING PHYSICIAN: MANJINDER DICKSON MD REFERRING PHYSICIAN: MURALI GAMINO MD DATE OF CONSULTATION: 04/15/2017 Surgical Consultation Note Addendum CHIEF COMPLAINT: Abdominal distention. HISTORY OF PRESENT ILLNESS: The patient has abdominal distention. I personally reviewed his CT images. I have personally reviewed the CT report. His abdomen is mildly diffusely tender. Palpation aggravates. Nothing alleviates. Symptoms are mild in intensity. 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 This is a consultation note addendum. For the typed portion of the consult note, please see chart. This will include the past medical and surgical history, allergies, social history, family history, as well as current medications. REVIEW OF SYSTEMS: No chest pain, no shortness of breath, no fever, no chills, no headache, no back pain. The review of systems is negative other than as it is described above. PHYSICAL EXAMINATION: GENERAL: The patient does not appear acutely ill. He does not appear chronically ill. VITAL SIGNS: Reviewed. EARS: External ears appear normal. EYES: Extraocular movements are intact. NECK: Trachea is midline. CHEST: No intercostal retractions. PULMONARY: Nonlabored, no stridor. ABDOMEN: Mild diffuse tenderness with tympany. GENITOURINARY: No incarcerated inguinal hernias. PSYCHIATRIC: Normal affect. NEUROLOGIC: Nonfocal, no lethargy. The patient answered questions appropriately, moves all extremities well. BACK: No thoracic kyphosis. LYMPHATICS: No lymphangitic streaking of the exposed extremities. IMPRESSION: Ileus versus a small bowel obstruction. I would favor a small bowel obstruction. PLAN: Small bowel follow-through, which may be diagnostic as well as therapeutic. TRANSINT:[id number] Voice Confirmation ID: [id number] DOCUMENT ID: [id number] CONSULT REPORT [id number] PATY COON ROBERT MD at 1113 CC: [id number] DICTATION DATE: 04/16/171939 LIGHT FIXTURE SERVICER: 04/16/172154 ADM IN [facility] [address] [id number]
[2017-04-25 12:40] VITALS: BP 128/83
[2017-04-25 14:25] LABS: CALC OSMOLALITY 270 mosm/kg (275-300); CALCIUM 8.5 mg/dL (8.5-10.1); CARBON DIOXIDE 26.7 mmol/L (21.0-32.0); CHLORIDE - SERUM 108 mmol/L (98-107); GLUCOSE 104 mg/dL (74-106); POTASSIUM - SERUM 3.4 mmol/L (3.5-5.1); SODIUM 136 mmol/L (136-145); UREA NITROGEN 11 mg/dL (7-18); eGFR NON AFRICAN AMERICAN 77 mL/min (90-120)
[2017-04-25] MEDS ORDERED: FLORAJEN3 CAPS460 MG PO (14:28)
--- NOTE | 2017-04-25 16:06 | NUR ---
CM REASSESSMENT NOTE: PATIENT IS DISCHARGING HOME TODAY; DRIVING PATIENT. PATIENT REFUSED HOME HEALTH AND HAD NO OTHER NEEDS FOR DISCHARGE.
--- NOTE | 2017-04-25 16:31 | NUR ---
DISCHARGE INSTRUCTIONS GIVEN TO PT AND , VERBALIZED UNDERSTANDING AND SIGNED. FOLLOW UP APPOINTMENTS GIVEN. R PORT ACCESS DISCONTINUED, FLUSHED WITH NS AND HEPARIN, BANDAGE APPLIED. R FLANK DRAIN STILL IN PLACE, TO BE D/C'D BY DR. PIKE ON FRIDAY. NO QUESTIONS AT THIS TIME.
--- NOTE | 2017-04-25 16:49 | NUR ---
PT ESCORTED VIA WHEELCHAIR TO PERSONAL VEHICLE WITH . PERSONAL BELONGINGS WITH PT. ALL QUESTIONS ANSWERED.
[2017-05-08 11:18] LABS: CALCULI - CA OXALATE MONOHYDR 35 % (()); CALCULI - URIC ACID 60 % (())
--- NOTE | 2017-05-12 11:43 | CN ---
PATIENT NAME:PATY COON MEDICAL RECORD: [id number] : 40 LOCATION:[facility] ADMIT DATE: 04/15/17 ACCOUNT: [id number] CONSULTING PHYSICIAN: TOMI SANDERS MD REFERRING PHYSICIAN: JOSH BARRIOS MD DATE OF CONSULTATION: 04/17/2017 CONSULT REQUESTING PHYSICIAN: Josh Barrios MD REASON FOR CONSULTATION: Questionable mass, left lower lobe. HISTORY OF PRESENT ILLNESS: Mr. Coon is a 77-year-old gentleman who has a history of follicular lymphoma grade I. The patient was admitted with acute abdomen, nausea, vomiting, and abdominal pain. He had a CT scan of the abdomen which showed soft tissue mass in the left lower lobe. The patient denies any fever or chills. There is no coughing and no sputum production. There is no recent pneumonia. REVIEW OF THE SYSTEMS: Mainly in the history of present illness. PAST MEDICAL HISTORY: 1. Follicular lymphoma, grade I. 2. History of CVA. 3. Hypertension. 4. Status post pacemaker placement. 5. Coronary artery disease. 6. Obstructive sleep apnea. The patient is on the BiPAP. 7. Gastroesophageal reflux disease. PAST SURGICAL HISTORY: 1. Cardiac catheterization and stent placement. 2. Herniorrhaphy. 3. Bypass surgery in 1994. 4. Shoulder surgery. 5. Status post pacemaker placement. 6. Hemorrhoidectomy. 7. Lymph node biopsy. ALLERGIES: HE IS ALLERGIC TO LEVAQUIN. PERSONAL AND SOCIAL HISTORY: The patient is . He has a remote history of smoking in childhood. He is nondrinker. FAMILY HISTORY: Significant for neurological disorder and cardiovascular disease. PHYSICAL EXAMINATION: GENERAL: Now, the patient is lying comfortably, but he is not in acute distress. VITAL SIGNS: The blood pressure is 124/78, pulse is 66, respiration is 18, temperature is 97.7, and SpO2 98% on room air. HEENT: Conjunctivae are pink. Sclerae nonicteric. NECK: Supple. No JVD. CHEST: The chest excursion is minimal with crackles at the left base. No wheezing. CONSULT REPORT [id number] PATY COON HEART: Rhythm regular. Normal sounds. No murmur. ABDOMEN: Abdomen is soft. Bowel sounds are present. No hepatosplenomegaly. RECTAL: Deferred. EXTREMITIES: No cyanosis. No clubbing. No pedal edema. SKIN: The skin is warm. Normal turgor. CENTRAL NERVOUS SYSTEM: The patient is awake and alert. There is no obvious cranial nerve abnormality. The gait was not tested. IMAGING DATA: CT scan of the abdomen; there is a soft tissue 4-cm mass in the left lower lobe. There is left pleural effusion. OTHER LABORATORY DATA: CBC; WBC 6.9, hemoglobin 9.2, hematocrit 28.7, and platelet count 130. Chemistry; sodium 142, potassium is 3.6, BUN is 17, and creatinine is 0.9. IMPRESSION: 1. Mass, left lower lobe. Rule out any malignant process. Rule out pneumonia. 2. Left pleural effusion. 3. Nausea and vomiting, possible small bowel ileus. 4. Abdominal pain secondary to #3. 5. History of follicular lymphoma. 6. Nephrolithiasis. 7. Obstructive sleep apnea, on BiPAP. RECOMMENDATIONS: 1. I will get CT scan of the chest with contrast. 2. Continue present care. Further recommendations will depend on CT scan of the chest. Dr. Barrios, thank you for involving me in the care of Mr. Coon. TRANSINT:[id number] Voice Confirmation ID: [id number] DOCUMENT ID: [id number] TOMI SANDERS MD at 1143 CC: JOSH BARRIOS MD [id number] DICTATION DATE: 04/17/17 1432 GUIDE ESCORT: 04/17/17 1507 DIS IN 04/25/17 [id number] [id number]
== END 2017-04-25 16:50 | disposition home or self-care (01) | DRG 981 ==
LOC: D.ER 05:46 → D.MS 10:58
PROVIDERS: Family Medicine; Internal Medicine Pulmonary Disease; Radiology Diagnostic Radiology; ADMIT Family Medicine
PROC: 0T7D8ZZ Dilation of Urethra, Via Natural or Artificial Opening Endoscopic (ICD-10-PCS; principal; 2017-04-15)
PROC: 0TC43ZZ Extirpation of Matter from Left Kidney Pelvis, Percutaneous Approach (ICD-10-PCS; 2017-04-23)
PROC: 0T773ZZ Dilation of Left Ureter, Percutaneous Approach (ICD-10-PCS; 2017-04-23)
PROC: BT1F1ZZ Fluoroscopy of Left Kidney, Ureter and Bladder using Low Osmolar Contrast (ICD-10-PCS; 2017-04-23)
PROC: 0T9430Z Drainage of Left Kidney Pelvis with Drainage Device, Percutaneous Approach (ICD-10-PCS; 2017-04-23)
PROC: 0T773DZ Dilation of Left Ureter with Intraluminal Device, Percutaneous Approach (ICD-10-PCS; 2017-04-23)
PROC: 0TC33ZZ Extirpation of Matter from Right Kidney Pelvis, Percutaneous Approach (ICD-10-PCS; 2017-04-24)
PROC: 0TP98DZ Removal of Intraluminal Device from Ureter, Via Natural or Artificial Opening Endoscopic (ICD-10-PCS; 2017-04-24)
PROC: 0TP5X0Z Removal of Drainage Device from Kidney, External Approach (ICD-10-PCS; 2017-04-24)
PROC: 0TB38ZX Excision of Right Kidney Pelvis, Via Natural or Artificial Opening Endoscopic, Diagnostic (ICD-10-PCS; 2017-04-24)
DX: K56.60 Unspecified intestinal obstruction (principal); J18.9 Pneumonia, unspecified organism; C83.34 Diffuse large B-cell lymphoma, lymph nodes of axilla and upper limb; I25.10 Atherosclerotic heart disease of native coronary artery without angina pectoris; Z95.0 Presence of cardiac pacemaker; I48.91 Unspecified atrial fibrillation; K21.9 Gastro-esophageal reflux disease without esophagitis; N20.0 Calculus of kidney; I12.9 Hypertensive chronic kidney disease with stage 1 through stage 4 chronic kidney disease, or unspecified chronic kidney disease; N18.9 Chronic kidney disease, unspecified; D64.9 Anemia, unspecified; R91.8 Other nonspecific abnormal finding of lung field; N35.9 Urethral stricture, unspecified; R19.7 Diarrhea, unspecified; G47.33 Obstructive sleep apnea (adult) (pediatric); R91.1 Solitary pulmonary nodule; E87.6 Hypokalemia; Z95.1 Presence of aortocoronary bypass graft

== ENCOUNTER 2017-04-26 02:31 | Inpatient (IN) | payer MEDICARE, OTHER ==
[2017-04-26 03:20] LABS: BASOPHILS 0.1 % (0-2); EOSINOPHILS 0.1 % (0-7); HEMATOCRIT 31.9 % (42.0-54.0); HEMOGLOBIN 10.5 g/dL (13.5-17.5); IMMATURE GRANULOCYTES 0.6 % (0-5); LYMPHOCYTES 5.9 % (15-50); MCH 27.7 pg (26.0-34.0); MCHC 32.9 g/dL (31.0-37.0); MCV 84.2 fL (80.0-100.0); MONOCYTES 15.5 % (2-11); NEUTROPHILS 77.8 % (40-80); PLATELET COUNT 163 10x3/uL (130-400); RBC 3.79 10x6/uL (4.20-6.10); RDW 21.3 % (11.5-14.5); WBC 7.8 10x3/uL (4.8-10.8)
[2017-04-26 03:42] LABS: ALBUMIN 3.2 g/dL (3.4-5.0); ANION GAP 14.9 mmol/L (8-16); BILIRUBIN - TOTAL 0.5 mg/dL (0.2-1.3); CALCIUM 9.1 mg/dL (8.5-10.1); CARBON DIOXIDE 26.4 mmol/L (21.0-32.0); CREATININE - SERUM 1.1 mg/dL (0.6-1.3); POTASSIUM - SERUM 3.3 mmol/L (3.5-5.1)
[2017-04-26 05:19] LABS: APPEARANCE HAZY (CLEAR); COLOR GRAY (YELLOW); GLUCOSE NEGATIVE (NEGATIVE); NITRITE NEGATIVE (NEGATIVE); PROTEIN 1+ mg/dL (NEGATIVE); SPECIFIC GRAVITY 1.015 (1.005-1.020)
[2017-04-26 05:20] LABS: BACTERIA NONE SEEN /hpf (NONE SEEN); BILIRUBIN NEGATIVE (NEGATIVE); EPITHELIAL CELLS RARE /hpf (0-5); KETONE LARGE mg/dL (NEGATIVE); RED CELLS - URINE >50 /hpf (0-5); UROBILINOGEN NORMAL (NORMAL); WHITE CELLS - URINE RARE /hpf (0-5)
--- NOTE | 2017-04-26 07:20 | NUR ---
PATIENT RECEIVED TO FLOOR FROM ER VIA STRETCHER. TRANSFERRED SELF TO BED AND POSITIONED FOR COMFORT. NO SIGNS OF DISTRESS NOTED. FAMILY AT BEDSIDE. ORIENTED TO ROOM. SIDE RAILS UP X2. BED IN LOW POSITION. CALL LIGHT IN REACH.
--- NOTE | 2017-04-26 07:30 | NUR ---
C/O PAIN TO ABD 03/06. DILAUDID ADMINISTERED SLOW IVP PER PRN ORDER. SCHEDULED MEDICATION ADMINISTERED. NGT TO LIWS. PLACEMENT VERIFIED WITH AIR BOLUS. DENIES FURTHER NEEDS. SIDE RAILS UP X2. BED IN LOW POSITION. CALL LIGHT IN REACH.
--- NOTE | 2017-04-26 09:25 | NUR ---
SCD PLACED BILATERALLY. USE EXPLAINED.
[2017-04-26 10:15] VITALS: BP 150/84; BMI 26.6
--- NOTE | 2017-04-26 12:23 | NUR ---
IN HIGH MEJIA POSITION RESTING QUIETLY. C/O PAIN 03/06. DILAUDID PER PRN ORDER. DENIES NEEDS. FAMILY PRESENT. SIDE RAILS UP X2. BED IN LOW POSITION. CALL LIGHT IN REACH.
[2017-04-26 12:36] VITALS: BMI 26.5
[2017-04-26 12:44] VITALS: BP 143/87
[2017-04-26 12:50] VITALS: BP 148/91
[2017-04-26 16:34] VITALS: BP 157/103
--- NOTE | 2017-04-26 16:50 | NUR ---
PATIENT SITTING UP IN CHAIR AT BEDSIDE. NO SIGNS OF DISTRESS NOTED. AT BEDSIDE. DENIES NEEDS. CALL LIGHT IN REACH.
[2017-04-26 16:52] VITALS: BP 156/89
[2017-04-26 20:00] VITALS: BP 146/89
[2017-04-27 04:13] VITALS: BP 144/87
--- NOTE | 2017-04-27 04:38 | NUR ---
ASSESSED, PT IS ASLEEP WITH HOB UP AT 30 DEGREES AND NG TUBE TO LIS. HE HAS A URINAL AT THE BEDSIDE AND RESPIRATIONS ARE EASY. THE BED IS LOW, RAILS UP X'S 2 WITH THE CALL LIGHT AT HAND.
[2017-04-27 05:34] LABS: BASOPHILS 0.1 % (0-2); EOSINOPHILS 0.8 % (0-7); HEMOGLOBIN 9.5 g/dL (13.5-17.5); IMMATURE GRANULOCYTES 0.8 % (0-5); LYMPHOCYTES 3.8 % (15-50); MCH 27.2 pg (26.0-34.0); MCHC 31.7 g/dL (31.0-37.0); MEAN PLATELET VOLUME 9.8 fL (7.4-10.4); MONOCYTES 15.8 % (2-11); NEUTROPHILS 78.7 % (40-80); PLATELET COUNT 145 10x3/uL (130-400); RBC 3.49 10x6/uL (4.20-6.10); RDW 21.2 % (11.5-14.5); WBC 7.1 10x3/uL (4.8-10.8)
[2017-04-27 05:36] LABS: CALCIUM 8.7 mg/dL (8.5-10.1); CARBON DIOXIDE 25.6 mmol/L (21.0-32.0); CHLORIDE - SERUM 106 mmol/L (98-107); CREATININE - SERUM 0.9 mg/dL (0.6-1.3); POTASSIUM - SERUM 3.5 mmol/L (3.5-5.1); SODIUM 141 mmol/L (136-145); eGFR NON AFRICAN AMERICAN 87 mL/min (90-120)
[2017-04-27 05:39] LABS: CALC OSMOLALITY 276 mosm/kg (275-300); GLUCOSE 67 mg/dL (74-106); UREA NITROGEN 8 mg/dL (7-18)
[2017-04-27 09:02] VITALS: BP 149/78
--- NOTE | 2017-04-27 10:45 | NUR ---
PATIENT ALERT IN BED WITH FAMILY AND PHYSICIAN AT BEDSIDE. NO SIGNS OF DISTRESS NOTED. BED IN LOW POSITION. SIDE RAILS UP X2. CALL LIGHT IN REACH.
--- NOTE | 2017-04-27 16:09 | NUR ---
SLEEPING, AROUSES TO VOICE, AT BEDSIDE, WILL CONTINUE TO MONITOR
[2017-04-27 20:00] VITALS: BP 145/87
--- NOTE | 2017-04-27 22:52 | NUR ---
PATIENT SLEEPING RIGHT NOW, NGT TO LIS. NO COMPLAINTS OF PAIN AT THIS TIME. PROCAL INFUSING AT 125mL/HR. BED IN LOWEST LOCKED POSITION, HOB ELEVATED, CALL LIGHT WITHIN REACH, x1 RAIL UP.
[2017-04-28] VITALS (35 sets, daily range): BP systolic 57–146; BP diastolic 38–108
--- NOTE | 2017-04-28 02:32 | NUR ---
RN NOTE: GAVE DILAUDID 1 MG IVP AND ZOFRAN 4 MG IVP PER PT REQUEST FOR PAIN AND NAUSEA. WILL MONITOR FOR EFFECTIVENESS. CALL LIGHT WITHIN REACH.
[2017-04-28 05:41] LABS: BASOPHILS 0.2 % (0-2); EOSINOPHILS 0.9 % (0-7); HEMATOCRIT 28.4 % (42.0-54.0); IMMATURE GRANULOCYTES 0.6 % (0-5); MCH 26.7 pg (26.0-34.0); MCHC 31.7 g/dL (31.0-37.0); MCV 84.3 fL (80.0-100.0); MEAN PLATELET VOLUME 10.4 fL (7.4-10.4); MONOCYTES 11.8 % (2-11); NEUTROPHILS 77.5 % (40-80); PLATELET COUNT 161 10x3/uL (130-400); RBC 3.37 10x6/uL (4.20-6.10); RDW 20.5 % (11.5-14.5); WBC 6.6 10x3/uL (4.8-10.8)
[2017-04-28 06:01] LABS: CALC OSMOLALITY 275 mosm/kg (275-300); CALCIUM 8.4 mg/dL (8.5-10.1); CARBON DIOXIDE 26.7 mmol/L (21.0-32.0); CHLORIDE - SERUM 105 mmol/L (98-107); CREATININE - SERUM 0.8 mg/dL (0.6-1.3); GLUCOSE 91 mg/dL (74-106); POTASSIUM - SERUM 3.6 mmol/L (3.5-5.1); SODIUM 138 mmol/L (136-145); eGFR NON AFRICAN AMERICAN > 90 mL/min (90-120)
[2017-04-28 06:03] LABS: UREA NITROGEN 13 mg/dL (7-18)
--- NOTE | 2017-04-28 07:38 | NUR ---
AWAKE AND ALERT. ORIENTED X3. NO C/O AT THIS TIME. LUNGS ARE CLEAR BILATERALLY, NO COUGH NOTED. SKIN IS INTACT WITHOUT REDNESS. NG TO LEFT NARE IS PATENT WITH GREENISH DISCHARGE. BOWEL SOUNDS ARE HYPOACTIVE. RIGHT PORT PATENT WITHOUT REDNESS AT INSERTION SITE. DENIES NEEDS.
--- NOTE | 2017-04-28 10:30 | NUR ---
GIVEN WIPES FOR SURGICAL BATH.
--- NOTE | 2017-04-28 11:21 | NUR ---
DR. PIKE HERE AND D/C NEPHROSTOMY TUBE. OFF UNIT VIA BED FOR SURGERY.
--- NOTE | 2017-04-28 15:17 | NUR ---
130ML OF BRIGHT RED BLOOD HAS BEEN EMPTED FROM PT BALDOMERO DRAIN.
--- NOTE | 2017-04-28 15:32 | NUR ---
PT BLOOD PRESSURE HAS BEEN LABILE AND HEART RATE CONTINOUSLY TACHY. PT HAS HAD 2700ML OF FLUID. GOING TO GET AN ABG WITH LYCELI.
--- NOTE | 2017-04-28 15:44 | NUR ---
NUTRITION F/U RECEIVED ORDER FROM TO START TPN. ADDED MAG, PHOS AND TRIGLYCERIDE TO AM LABS. PT CURRENTLY RECEIVING PROCALAMINE @ 125 CC/HR. WILL CHECK LAB RESULTS AND WRITE TPN ORDERS IN AM. RD FOLLOWING
--- NOTE | 2017-04-28 16:00 | NUR ---
GOT RESULTS OF ABG AND LYTES. INFORMED OF RESULTS. V.O VOICED TO GIVE 2 ML OF SODIUJM BICARBONATE AND 1GRAM OF CALCIUM CHLORIDE IV NOW. V.O.R.B CORRECT ALSO NOTIFIED OF PT STATUS AND CONCERN FOR THE PT GO TO ICU. VOICED YES SEND HIM TO ICU
--- NOTE | 2017-04-28 16:51 | NUR ---
1645 PT RECIEVED FROM THE RR VIA BED PT IS AWAKE AND APPROPRIATE IN HIS RESPONSES...THERE IS AN NGT IN THE LEFT NARE TO LIWS WITHOUT DRAINAGE INTO CANNISTER AT THIS TIME.. O2 IS 90% ON 2L PER NASAL CANNULA AT 2 LITERS THERE IS AN INFUSAPORT IN THE RIGHT CHEST WALL WITH NS INFUSING. BALDOMERO DRAIN FROM DRESSING ON LEFT ABDOMEN WITH BLOODY DRAINAGE IN THE BULB.. DRESSING IS C/D/I ON MID ABDOMEN.... THERE IS A DRESSING ON THE RIGHT FLANK THAT IS INTACT
--- NOTE | 2017-04-28 18:38 | NUR ---
[address] JOYNER CATH.. BP REMAINS LOW AND RESPIRATIONS ARE RAPID WITH O2 SAT 80%.. DR MERRITT CALLED AND ORDERS RECIEVED.. DR PIKE CALLED ... O2 NRB.. IV FLUIDS LR AT OPEN RATE FOR BP.. 1800 DR PIKE HERE AND PLACED A JOYNER CATH INTO PT.. SCANT AMPUNT OF PINK TINGED URINE OBTAINED.. JOYNER IRRIGATED BY DR PIKE NURSE AT THE BEDSIDE.. DR MERRITT AT [facility]... 183 IN TO SEE PT.... UPDATE GIVEN..
--- NOTE | 2017-04-28 19:25 | NUR ---
ASSESSEMENT COMPLETE, PT IS ALERT AND ORIENTED, ON 100% NRB, O2 SAT 98%, LUNGS CLEAR IN B/L UPPER LOBES, DIMINISHED IN B/L LOWER LOBES, S1S2, CM-NSR, PATENT RIGHT CHEST PORT...SEE IV FLOW SHEET...ABDOMEN IS DISTENDED WITH HYPO BS, DRSG TO ABDOMEN AND RIGHT FLANK ARE CDI, PATENT F/C WITH ESTEFANY UOP, NO EDEMA NOTED, ALL PPP, NGT TO LIWS WITH GREEN DRAIANGE, WILL CON'T TO MONITOR
--- NOTE | 2017-04-28 19:30 | NUR ---
DR. MERRITT AT BEDSIDE, LEFT SC CVL AND LEFT RADIAL ARTLINE PLACED AT THIS TIME, PT TOLERATED WELL
[2017-04-28 20:24] LABS: BASOPHILS 0.1 % (0-2); EOSINOPHILS 0.1 % (0-7); IMMATURE GRANULOCYTES 1.9 % (0-5); LYMPHOCYTES 1.8 % (15-50); MCH 27.2 pg (26.0-34.0); MCHC 32.2 g/dL (31.0-37.0); MCV 84.5 fL (80.0-100.0); MEAN PLATELET VOLUME 10.3 fL (7.4-10.4); MONOCYTES 2.8 % (2-11); NEUTROPHILS 93.3 % (40-80); PLATELET COUNT 155 10x3/uL (130-400); RDW 20.5 % (11.5-14.5)
[2017-04-28 20:40] LABS: HEMATOCRIT 35.4 % (42.0-54.0); HEMOGLOBIN 11.4 g/dL (13.5-17.5); RBC 4.19 10x6/uL (4.20-6.10); WBC 14.2 10x3/uL (4.8-10.8)
--- NOTE | 2017-04-28 21:00 | NUR ---
AT BEDSIDE, UPDATE GIVEN BY DR. MERRITT
--- NOTE | 2017-04-28 22:29 | NUR ---
UPDATE GIVEN TO OVER PHONE, PASSWORD GIVEN
--- NOTE | 2017-04-28 23:14 | NUR ---
REASSESSMENT COMPLETE, NO CHANGES NOTED, PT RESTING AT THIS TIME, WILL CON'T TO MONITOR
--- NOTE | 2017-04-28 23:45 | NUR ---
UPDATE GIVEN TO DR. MERRITT, NEW ORDERS RECIEVED
[2017-04-29] VITALS (81 sets, daily range): BP systolic 79–140; BP diastolic 26–98
[2017-04-29 00:29] LABS: ALBUMIN 1.8 g/dL (3.4-5.0); BILIRUBIN - TOTAL 0.42 mg/dL (0.2-1.3); CALCIUM 7.9 mg/dL (8.5-10.1); CARBON DIOXIDE 20.9 mmol/L (21.0-32.0); POTASSIUM - SERUM 3.9 mmol/L (3.5-5.1)
[2017-04-29 00:33] LABS: CREATININE - SERUM 1.8 mg/dL (0.6-1.3)
--- NOTE | 2017-04-29 01:20 | NUR ---
CALLED GIVEN UPDATE. NO NEW FINDINGS. VSS WILL CONTINUE TO MONITOR
--- NOTE | 2017-04-29 03:00 | NUR ---
REASSESSMENT COMPLETE, PT CONFUSED ABOUT SITUATION, REORIENTS EASILY, NO OTHER NEEDS NOTED, WILL CON'T TO MONITOR
[2017-04-29 04:04] LABS: BASOPHILS 0.1 % (0-2); EOSINOPHILS 0.5 % (0-7); HEMATOCRIT 28.4 % (42.0-54.0); HEMOGLOBIN 9.3 g/dL (13.5-17.5); IMMATURE GRANULOCYTES 0.8 % (0-5); LYMPHOCYTES 1.8 % (15-50); MCH 27.4 pg (26.0-34.0); MCHC 32.7 g/dL (31.0-37.0); MCV 83.8 fL (80.0-100.0); MEAN PLATELET VOLUME 10.3 fL (7.4-10.4); MONOCYTES 7.9 % (2-11); NEUTROPHILS 88.9 % (40-80); PLATELET COUNT 164 10x3/uL (130-400); RBC 3.39 10x6/uL (4.20-6.10)
[2017-04-29 04:26] LABS: ANION GAP 13.4 mmol/L (8-16); CALCIUM 7.7 mg/dL (8.5-10.1); CARBON DIOXIDE 23.2 mmol/L (21.0-32.0); CREATININE - SERUM 2.1 mg/dL (0.6-1.3); MAGNESIUM - SERUM 1.1 mg/dL (1.8-2.4); PHOSPHOROUS 2.4 mg/dL (2.5-4.9); POTASSIUM - SERUM 3.6 mmol/L (3.5-5.1)
--- NOTE | 2017-04-29 05:05 | NUR ---
REPOSITIONED FOR COMFORT, WILL CON'T TO MONITOR
--- NOTE | 2017-04-29 11:00 | NUR ---
REASSESSED VOICES NO CO AT TIME.
--- NOTE | 2017-04-29 11:13 | NUR ---
NUTRIITON F/U TPN STARTED PER MD CONSULT. SPOKE WITH NEPHROLOGY RE:LABS AND FLUIDS. WILL MONITOR PT PROGRESS AND ADJUST TPN RATE APPROPRIATE. MONITOR LABS AND ADJUST ELECTROLYTES NEEDED. RD FOLLOWING
--- NOTE | 2017-04-29 12:00 | NUR ---
REASSESSED. VOICES NO CO AT TIME.
--- NOTE | 2017-04-29 15:00 | NUR ---
FAMILY AT THE BEDSIDE. VOICES NO CO AT TIME.
--- NOTE | 2017-04-29 16:52 | OP ---
PATIENT NAME: PATY COON MEDICAL RECORD: [id number] :40 LOCATION:[facility] D.2310 ADMISSION DATE:04/26/17 SURGEON: AURA MERRITT MD DATE OF OPERATION: 04/28/2017 SURGEON: Aura Merritt MD. PREOPERATIVE DIAGNOSIS: Small bowel obstruction. POSTOPERATIVE DIAGNOSIS: Small bowel obstruction. PROCEDURES PERFORMED: 1. Diagnostic laparoscopy with lysis of adhesions. 2. Exploratory laparotomy. 3. Small bowel resection. 4. Appendectomy. ANESTHESIA: General. COMPLICATIONS: None. SPECIMENS: 1. Small bowel. 2. Appendix. Case was grossly contaminated. ESTIMATED BLOOD LOSS: 150 cc. OPERATIVE COURSE: After consent was obtained, the patient was taken to the operating room and placed in supine position on the operating table. Next, general anesthesia was given via endotracheal intubation after a timeout was performed that confirmed the correct patient and procedure. Local anesthetic was injected just above the umbilicus. A stab incision was made with 11-blade scalpel. Using a 5-mm bladeless optical trocar, the abdomen was entered under direct laparoscopic vision. Adequate pneumoperitoneum was achieved. The abdominal cavity was inspected. No evidence of bowel injury. No evidence of bleeding. At this time, 2 additional trocars were placed, 5-mm trocar in the lower midline and 5-mm trocar in the left lower quadrant. Consistent with the preoperative imaging findings, there was a densely adherent obstruction of the small bowel to the anterior abdominal wall. This was meticulously dissected with Metzenbaum scissors. Surgically, necessary enterotomy was created in order free the small bowel from the anterior abdominal wall. Next, once this was completed, the cecum and the ascending colon were mobilized. The White line of Toldt was taken down using electrocautery. An upper midline abdominal incision was created and Matthew retractor was placed. The small bowel was extracorporealized. The small bowel was run from the ligament of Treitz to the terminal ileum. In the distal 20 cm terminal ileum, the area was encountered. The area of the dissection of the small bowel was markedly indurated. The small bowel was perforated. At this point, there was gross intraabdominal contamination. A small bowel resection was completed, taking approximately 8 cm of small bowel. The small bowel resection was performed with the linear cutting 55 mm stapler. Mesentery was divided with 2-0 silk suture. The small bowel dissection was sent up for permanent pathology. The appendix was involved within the area of the indurated small bowel. At this time, an appendectomy was OPERATIVE REPORT [id number] PATY COON performed. The appendix was freed and the mesenteric window was created. The base of the appendix was taken to 55 linear cutting GI stapler and sent for permanent pathology. The mesentery was divided with electrocautery. Appendiceal vessels were tied up with 2-0 silk suture. Again at this time, the small bowel was run from the ligament of Treitz to the ileocecal valve. There was active movement of fluid through the small bowel anastomosis. The abdominal cavity was irrigated with approximately 5 liters of warm normal saline. A 10 flat BALDOMERO drain was placed through the left lower quadrant incision and into the right pericolic gutter. Midline abdominal incision was closed with #1 looped PDS. Skin was closed with sutures. BALDOMERO drain was secured with 2-0 silk suture. At the end of the case, all needle and instrument counts were correct. No complications occurred. The patient was extubated and transferred to the PACU in stable condition. TRANSINT:[id number] Voice Confirmation ID: [id number] DOCUMENT ID: [id number] AURA MERRITT MD at 1652 CC: [id number] DICTATION DATE: 04/28/17 1442 EDI DEVELOPER: 04/28/17 1808 ADM IN [id number] [place] [address]
--- NOTE | 2017-04-29 17:00 | NUR ---
DR MERRITT IN ROOM. VOICES NO CO AT TIME.
--- NOTE | 2017-04-29 19:20 | NUR ---
REPORT RECIEVED. ASSESSMENT COMPLETE PER FLOW SHEET. VSS. L RADIAL A LINE WITHOUT GOOD WAVEFORM EXTREMITY COLD TO TOUCH FINGERS BLUISH HUE STATES HAS SENSATION WRIST PROTECTOR ON DRSG CHANGED WILL NOT DRAW AT THIS TIME. REMOVED CATH INTACT. PT STATES PAIN 8/10 GIVEN CNA CAREGIVER HIT ONCE PLACED BACK ON BEDSIDE TABLE. COMPLETE LINEN CHANGE. 2009 PT UNRESPONSIVE BREATHING 24/MIN O2 SAT 97% EYES PERLLA 3MM BRISK WILL NOT RESPOND TO PAIN AT THIS TIME. NARCAN ADMINISTERED. NO RESPONSE. ABG OBTAINED PULSES WEAK VENOUS STICK LACTIC ACID 10.64 [employer] [employer] PAGED. 2[address] DR BURDEN CALLED BACK UPDATE GIVEN ORDER TO CALL DR SANDERS. DR SANDERS CALLED GIVEN UPDATE. ABG'S REVIEWED. T ORDER FOR NEW ABG'S FEMORAL STICK. [address] SANDERS PAGED REVIEWED. T ORDER FOR 2 AMP BICARB TO BE GIVEN CHECK AMMONIA LEVEL INTUBATE AND GO FOR HEAD CT. 2200 PT INUTATED BY IN ER WITH NO DIFFICULTY. VSS. VERIFIED BY CHEST XRAY. FAMILY AT BEDSIDE. GIVEN UPDATE. [address] 2340 PT BACK TO ROOM T ORDER FROM DR SANDERS TO CONSULT DR EDWARDS. [address] EDWARDS CALLED GIVEN UPDATE REPORT READ BACK NO FURTHER ORDERS AT THIS TIME. VSS. FAMILY GIVEN UPDATE. WILL CONTINUE TO MONITOR CONSULT DR EDWARDS.
--- NOTE | 2017-04-29 23:00 | NUR ---
REASSESSMENT COMPLETE PER FLOW SHEET. VSS WILL CONTINUE TO MONITOR
[2017-04-30] VITALS (32 sets, daily range): BP systolic 76–121; BP diastolic 52–84
--- NOTE | 2017-04-30 01:31 | NUR ---
NO NEW CHANGES AT THIS TIME. VSS. WILL CONTINUE TO MONITOR
--- NOTE | 2017-04-30 01:37 | NUR ---
REPOSITIONED ON R SIDE. VSS. NO NEW CHANGES. WILL CONTINUE TO MONITOR
--- NOTE | 2017-04-30 03:15 | NUR ---
REASSESSMENT COMPLET EPER FLOW SHEET. VSS. NO NEW CHANGES. WILL CONTINUE TO MONITOR
[2017-04-30 04:46] LABS: HEMATOCRIT 26.3 % (42.0-54.0); HEMOGLOBIN 8.4 g/dL (13.5-17.5); MCH 27.7 pg (26.0-34.0); MCHC 31.9 g/dL (31.0-37.0); MCV 86.8 fL (80.0-100.0); MEAN PLATELET VOLUME 11.4 fL (7.4-10.4); PLATELET COUNT 112 10x3/uL (130-400); RBC 3.03 10x6/uL (4.20-6.10); RDW 22.2 % (11.5-14.5); WBC 24.6 10x3/uL (4.8-10.8)
[2017-04-30 05:07] LABS: BILIRUBIN - TOTAL 0.73 mg/dL (0.2-1.3); CALCIUM 7.6 mg/dL (8.5-10.1); CARBON DIOXIDE 17.9 mmol/L (21.0-32.0); PROTEIN - SERUM 4.7 g/dL (6.4-8.2)
[2017-04-30 05:11] LABS: ALBUMIN 2.4 g/dL (3.4-5.0); ANION GAP 24.6 mmol/L (8-16); CREATININE - SERUM 3.8 mg/dL (0.6-1.3); MAGNESIUM - SERUM 2.1 mg/dL (1.8-2.4); PHOSPHOROUS 4.6 mg/dL (2.5-4.9); POTASSIUM - SERUM 5.5 mmol/L (3.5-5.1)
[2017-04-30 05:34] LABS: LYMPHOCYTES 7 % (15-50); MONOCYTES 14 % (2-11); NEUTROPHILS 35 % (40-80); PLATELET ESTIMATE DECREASED
[2017-04-30 07:34] LABS: ALT (SGPT) 530 U/L (10-68)
--- NOTE | 2017-04-30 08:24 | NUR ---
DR MERRITT, DR EDWARDS AND DR GAMINO HAVE BEEN BY TO PATIENT. HAVE DISCUSSED PROGNOSIS. FAMILY AT BEDSIDE AT THIS TIME. HAVE VISITED WITH DR GAMINO. FAMILY HAS DECIDED TO PROCEED WITH COMFORT CARE.
--- NOTE | 2017-04-30 09:30 | NUR ---
MORE FAMILY AT BEDSIDE. DR SANDERS HAS BEEN PAGED TO NOTIFY OF REQUEST FOR TERMINAL EXTUBATION.
--- NOTE | 2017-04-30 09:50 | NUR ---
FAMILY IS AT THE BEDSIDE. THEY HAVE MADE DECISION TO TERMINALLY EXTUBATE PATIENT. THEY ARE REQUESTING AFTER EXTUBATION IF PATIENT DOES NOT PASS THAT WE CONSULT HOSPICE. DR GAMINO STATES THAT DR. BYNUM IS PATIENT'S ONCOLOGIST AND THAT THE FAMILY WISHES TO HAVE REFERRAL TO [facility] IF IT IS NEEDED AFTER EXTUBATION.
--- NOTE | 2017-04-30 10:16 | NUR ---
DR SANDERS ON UNIT. NOTIFIED OF REQUEST TO EXTUBATE. FAMILY NOTIFIED. WANTS DONE SOON POSSIBLE.
--- NOTE | 2017-04-30 10:33 | NUR ---
EXTUBATION AT 10:26
--- NOTE | 2017-04-30 11:01 | NUR ---
MILL TENDER PUMP SET UP. EXPLAINED TO FAMILY USE OF MORPHINE FOR PAIN AND FOR AIR HUNGER COMFORT.
--- NOTE | 2017-04-30 11:23 | NUR ---
FAMILY REQUESTED ME INTO ROOM. PT NO LONGER BREATHING. EKG ACTIVITY DUE TO PACEMAKER. NO BREATH SOUNDS HEARD. DR SANDERS BROUGHT INTO ROOM TO ASSESS PATIENT. TIME PRONOUNCED 11:14 AM.
--- NOTE | 2017-04-30 11:26 | NUR ---
DR GAMINO OFFICE CALLED. SPOKE WITH SHERRI. ASKED HER TO LET DR GAMINO KNOW THAT MR. COON HAD .
--- NOTE | 2017-04-30 11:38 | NUR ---
CARROLL NOTIFIED. PT RULED OUT DUE TO AGE. FAMILY HAS CHOSEN [facility] FOR ARRANGEMENTS. FAMILY HAS PREVIOUSLY TAKEN HOME ALL OF PATIENT'S BELONGINGS.
--- NOTE | 2017-04-30 12:30 | NUR ---
HOME NOTIFIED. SPOKE WITH VINICIO.
--- NOTE | 2017-04-30 12:50 | NUR ---
HOME HAS TAKEN POSSESSION PATIENT. FAMILY AT BEDSIDE, WILL FOLLOW TO HOME.
--- NOTE | 2017-05-01 10:59 | NUR ---
Per CMS protocol, restraint report logged into data base.
--- NOTE | 2017-05-12 11:43 | CN ---
PATIENT NAME:PATY COON MEDICAL RECORD: [id number] : 40 LOCATION:[id number] ADMIT DATE: 04/26/17 ACCOUNT: [id number] CONSULTING PHYSICIAN: TOMI SANDERS MD REFERRING PHYSICIAN: MURALI GAMINO MD DATE OF CONSULTATION: 04/29/2017 CONSULT REQUESTING PHYSICIAN: Dr. Renato Merritt REASON FOR CONSULTATION: Septic shock, critical care management. HISTORY OF PRESENT ILLNESS: Mr. Coon is a 77-year-old gentleman, who was admitted with small bowel obstruction. The patient underwent laparotomy yesterday and found that the patient had bowel perforation. The patient had adhesion lysis, and the patient was brought into the ICU. Since then, the patient is hypotensive, required multiple pressors to keep his systolic blood pressure above 90. Also, he is very weak and lethargic. The history was taken mainly by talking to the nursing staff as well as reviewing the patient's notes. REVIEW OF SYSTEMS: Mainly in the history of present illness. The patient is very weak and lethargic. PAST MEDICAL HISTORY: 1. History of follicular lymphoma, grade I. 2. History of CVA. 3. Hypertension. 4. Status post pacemaker placement, coronary artery disease. 5. Obstructive sleep apnea. The patient is on BiPAP. 6. Gastroesophageal reflux disease. 7. Recent small bowel obstruction. PAST SURGICAL HISTORY: 1. He has had cardiac catheterization and stent placement. 2. Herniorrhaphy. 3. CABG in 1994. 4. Shoulder surgery. 5. Status post pacemaker placement. 6. Hemorrhoidectomy. 7. Lymph node biopsy. 8. Now the patient is status post laparotomy for adhesion and perforated bowel. ALLERGIES: HE IS ALLERGIC TO LEVAQUIN. PRESENT MEDICATIONS: Vascular Closure is reviewed. PERSONAL AND SOCIAL HISTORY: The patient is and lives with his . He is a nonsmoker and nondrinker. FAMILY HISTORY: Noncontributory. PHYSICIAL EXAMINATION: GENERAL: Now, the patient is lying comfortably in bed. He is very weak and lethargic. VITAL SIGNS: The blood pressure is 86-100/47, pulse is 115, respiration is 24-29, temperature 97.5, SpO2 is 99% on 10 liter oxymizer. CONSULT REPORT [id number] PATY COON HEENT: Conjunctiva is pale. Sclera is not icteric. NECK: Neck is supple. No JVD. CHEST: There is crackle at the left base. There are no wheezes. HEART: Rate and rhythm regular. Normal sound. No murmur. ABDOMEN: Abdomen is soft. There is a laparotomy wound. Bowel sounds are absent. RECTAL: Deferred. EXTREMITIES: No cyanosis. No clubbing. There are 2 pitting edema. SKIN: The skin is warm, normal turgor. CENTRAL NERVOUS SYSTEM: The patient is awake and alert. There is no obvious cranial nerve abnormality. LABORATORY DATA: CBC: The WBC is 14.2, hemoglobin is 11.4, hematocrit 35.4, the platelet count is 155. Chemistry: Sodium 143, potassium 3.6, chloride 110, bicarbonate 23.2, BUN is 22, creatinine 2.1. On admission, creatinine was 0.8. Glucose 112. Magnesium is 1.1. Albumin is 1.8. ABG: The pH is 7.41, pCO2 is 29, the pO2 is 121, bicarb is 18.5. The lactic acid level on the ABG is 3.39. IMPRESSION: 1. Septic shock, possible hypovolemic, most likely secondary to peritonitis with perforated bowel. 2. Small bowel obstruction with perforation. 3. Peritonitis. 4. Status post laparotomy for adhesion lysis and perforation repair. 5. Acute renal failure, most likely secondary to acute tubular necrosis with hypotension. 6. Hypoalbuminemia. 7. Hypomagnesemia. 8. Left pleural effusion. 9. Lactic acidosis. RECOMMENDATIONS: 1. We will start vancomycin. 2. Start on meropenem. I will discontinue Zosyn. 3. Check blood culture, urine culture. 4. Start on bicarb drip. 5. Continue the pressor to keep the systolic blood pressure above 90. 6. Amino acid infusion. 7. Start him on TPN. Follow up labs and chest radiograph. Keep the CVP 10-12. Dr. Merritt, thank you for involving me in the care of Mr. Coon. TRANSINT:[id number] Voice Confirmation ID: [id number] DOCUMENT ID: [id number] TOMI SANDERS MD at 1143 CC: MURALI GAMINO MD and AURA MERRITT MD [id number] DICTATION DATE: 04/29/17 1221 GATE AGENT: 04/29/17 1314 DIS IN 04/30/17 [facility] [address] [id number]
== END 2017-04-30 13:49 | DRG 329 ==
LOC: D.ER 02:31 → D.ICU 06:27 → D.MS 06:27 → D.ICU 04-28 16:44
PROVIDERS: Family Medicine; Internal Medicine Pulmonary Disease; Surgery; ADMIT Family Medicine
PROC: 0D9670Z Drainage of Stomach with Drainage Device, Via Natural or Artificial Opening (ICD-10-PCS; 2017-04-26)
PROC: 0T9B70Z Drainage of Bladder with Drainage Device, Via Natural or Artificial Opening (ICD-10-PCS; 2017-04-28)
PROC: 02HV33Z Insertion of Infusion Device into Superior Vena Cava, Percutaneous Approach (ICD-10-PCS; 2017-04-28)
PROC: 03HY32Z Insertion of Monitoring Device into Upper Artery, Percutaneous Approach (ICD-10-PCS; 2017-04-28)
PROC: 0DTB0ZZ Resection of Ileum, Open Approach (ICD-10-PCS; principal; 2017-04-28 11:30)
PROC: 0DTJ0ZZ Resection of Appendix, Open Approach (ICD-10-PCS; 2017-04-28 11:30)
DX: K56.50 Intestinal adhesions [bands], unspecified as to partial versus complete obstruction (principal); A41.9 Sepsis, unspecified organism; R65.21 Severe sepsis with septic shock; K65.9 Peritonitis, unspecified; K63.1 Perforation of intestine (nontraumatic); N17.0 Acute kidney failure with tubular necrosis; I63.9 Cerebral infarction, unspecified; C85.93 Non-Hodgkin lymphoma, unspecified, intra-abdominal lymph nodes; I10 Essential (primary) hypertension; I25.10 Atherosclerotic heart disease of native coronary artery without angina pectoris; I48.91 Unspecified atrial fibrillation; N20.0 Calculus of kidney; E88.09 Other disorders of plasma-protein metabolism, not elsewhere classified; E83.42 Hypomagnesemia; Z86.73 Personal history of transient ischemic attack (TIA), and cerebral infarction without residual deficits; Z95.5 Presence of coronary angioplasty implant and graft; Z95.0 Presence of cardiac pacemaker